=== PATIENT | female | born 1940 | race Two or more races ===

== ENCOUNTER 2023-03-18 07:28 | Day surgery (SDC) | payer OTHER ==
[~2023-03-18] VITALS: Ht 157.5 cm; Wt 62.6 kg
[2023-03-18] VITALS (14 sets, daily range): BP systolic 124–159; BP diastolic 56–86; PULSE 47–91; RESP 11–24; TEMP 97.4; O2SAT 92–100
[~2023-03-18 07:28] MED LIST: ALBU108A5 IN; ALPR0.5T7 PO; FLUT1AER17 IN; FURO1TAB31 PO; LEVO88TA4 PO; METO25TA5 PO; POTA-228 PO; SIMV10TA20 PO; WARF-112 PO; WARF4TAB69 PO
[2023-03-18] MEDS ORDERED: ONDANSETRON HCL 4 MG/2 ML VIAL IV ONE (08:15)
[2023-03-18] MEDS ORDERED: LIDOCAINE VISCOUS 2% 15ML UD MT ONE (08:15)
[2023-03-18] MEDS ORDERED: fentaNYL CITRATE 100 MCG/2 ML VL IV ONE (08:15)
[2023-03-18] MEDS ORDERED: MIDAZOLAM HCL 2MG/2ML 2ml VIAL (1mg/ml) IV ONE (08:15)
[2023-03-18] MEDS ORDERED: MIDAZOLAM HCL 2MG/2ML 2ml VIAL (1mg/ml) ONE ×2 (08:50→09:30)
[2023-03-18] MEDS ORDERED: ANGIOMAX 250 MG VIAL IV ONE (09:29)
[2023-03-18] MEDS ORDERED: fentaNYL CITRATE 100 MCG/2 ML VL ONE (09:29)
[2023-03-18] MEDS ORDERED: SODIUM CHL 0.9% 0 ML ONE (09:30)
[2023-03-18] MEDS ORDERED: IODIXANOL 320MG/ML 100ML BTL IV ONE (09:30)
[2023-03-18] MEDS ORDERED: LIDOCAINE 2%HCL (LOCAL ANESTH.) INJ 20ML MDV ONE (09:30)
[2023-03-18] MEDS ORDERED: HEPARIN SODIUM (PORCINE) 5000 UNITS/ML 1ML VIAL ONE (10:08)
[2023-03-18] MEDS ORDERED: VERAPAMIL 2.5MG/ML INJ 2ML VIAL IV ONE (10:08)
[2023-03-18] MEDS ORDERED: ATROPINE SULF 1 MG/10ml SYR ONE (10:34)
[2023-03-18] MEDS ORDERED: EPINEPHrine HCL 1 MG/10 ML SYRG ONE (10:34)
== END 2023-03-18 14:05 | disposition home or self-care (01) ==
LOC: CATH 07:28
PROVIDERS: ATTEND Internal Medicine
DX: R07.89 Other chest pain (principal); I27.20 Pulmonary hypertension, unspecified; I48.91 Unspecified atrial fibrillation; I08.3 Combined rheumatic disorders of mitral, aortic and tricuspid valves
CPT/HCPCS: 93312; 93460; C1757; C1769; C1887; C1894; J1644; J2250; J3010; Q9967; 99152; 99153; J2405

== ENCOUNTER 2023-08-20 16:27 | Inpatient (IN) | payer OTHER ==
[~2023-08-20] VITALS: Ht 157.5 cm; Wt 62.8 kg
[2023-08-20 17:05] LABS: Basophils # (auto) 0 10 ^3/uL (0-0.2); Eosinophils # (auto) 0.3 10 ^3/uL (0-0.8); Eosinophils % (auto) 5.7 % (0.0-7.0); Hemoglobin 12.3 g/dL (12.2-16.2); Lymphocytes # (auto) 0.8 10 ^3/uL (0.4-5.4); Lymphocytes % (auto) 17.4 % (10.0-50.0); Mean Corpuscular Hemoglobin 31.2 pg (28.0-32.0); Mean Corpuscular Hgb Conc. 33.2 g/dL (32.0-36.0); Mean Corpuscular Volume 94.1 fL (80.0-100.0); Monocytes # (auto) 0.6 10 ^3/uL (0-1.3); Monocytes % (auto) 12.9 % (0.0-12.0); Nucleated Red Blood Cells % 0.2 %; Red Blood Cells 3.93 10^6/uL (4.0-5.20); Red Cell Distribution Width 15.6 % (11.8-14.3); White Blood Cell 4.8 10^3/uL (4.4-10.8)
[2023-08-20 17:18] LABS: Large Platelets FEW; Platelet Estimate Decreased
[2023-08-20 17:19] LABS: Anisocytosis Slight
[2023-08-20 17:20] LABS: INR 2.02 (0.9-1.15); Partial Thromboplastin Time 39.7 SEC (24.5-34.5); Prothrombin Time 20.3 sec (9.3-11.8)
[2023-08-20 17:21] LABS: Alanine Aminotransferase 21 U/L (7-40); Albumin 3.6 g/dL (3.2-4.8); Alkaline Phosphatase 88 U/L (46-116); Anion Gap 2 (5-15); Aspartate Aminotransferase 60 U/L (13-40); BUN/Creatinine Ratio 15.6 (10.0-20.0); Bilirubin, Total 1.5 mg/dL (0.2-1.0); Blood Urea Nitrogen 14 mg/dL (9-23); Calcium 9.1 mg/dL (8.7-10.4); Carbon Dioxide 33 mmol/L (20-30); Chloride 97 mmol/L (98-107); Glucose 105 mg/dL (74-106); Magnesium 1.8 mg/dL (1.6-2.6); Potassium 3.4 mmol/L (3.5-5.1); Sodium 132 mmol/L (136-145); Total Protein 7.4 g/dL (5.7-8.2)
[2023-08-20 17:28] LABS: Urine Bacteria FEW /hpf (None Seen); Urine Blood TRACE /uL (Negative); Urine Clarity HAZY (Clear); Urine Color Colorless (Yellow); Urine Hyaline Cast FEW /lpf (0 - 2); Urine Protein, UAD Negative (Negative); Urine Specific Gravity 1.006 (1.001-1.035); Urine WBC 3 /hpf (0 - 5); Urine pH 7.5 (5.0-8.0)
[2023-08-20] MEDS: ALPRAZolam 0.5 MG TAB PO ONE (19:25)
[2023-08-20] MEDS ORDERED: FUROSEMIDE 40 MG/4 ML VIAL IV ONE (22:15)
[2023-08-20] MEDS: POTASSIUM CHL 20MEQ/100ML 100 ML IV SCH (22:30)
[2023-08-20] MEDS ORDERED: ONDANSETRON HCL 4 MG/2 ML VIAL IV PRN (23:00)
[2023-08-20] MEDS ORDERED: HYDROcodone-ACET 5/325MG TAB PO PRN (23:00)
[2023-08-20] MEDS ORDERED: ACETAMINOPHEN 325 MG TAB PO PRN (23:00)
[2023-08-21] VITALS (22 sets, daily range): BP systolic 116–162; BP diastolic 55–84; PULSE 68–100; RESP 14–20; TEMP 97.6–98.6; O2SAT 95–100
[2023-08-21] MEDS: LEVALBUTEROL HCL 1.25 MG/3 ML NEB NEB SCH (00:15)
[2023-08-21] MEDS: methylPREDNISolone SOD SUCC 40 MG/ML VL IV ONE (00:29)
[2023-08-21] MEDS: AZITHROMYCIN 500MG/ 250ML 250 ML IV ONE (00:30)
[2023-08-21] MEDS ORDERED: METOPROLOL TARTRATE 25 MG TAB PO SCH ×2 (03:00→10:00)
[2023-08-21] MEDS: METOPROLOL TARTRATE 25 MG TAB PO ONE (03:27)
[2023-08-21 06:48] LABS: Basophils # (auto) 0 10 ^3/uL (0-0.2); Basophils % (auto) 0.6 % (0.0-2.0); Eosinophils # (auto) 0 10 ^3/uL (0-0.8); Eosinophils % (auto) 0.9 % (0.0-7.0); Hematocrit 32.6 % (36.0-46.0); Hemoglobin 10.9 g/dL (12.2-16.2); Lymphocytes # (auto) 0.5 10 ^3/uL (0.4-5.4); Lymphocytes % (auto) 16.5 % (10.0-50.0); Mean Corpuscular Hemoglobin 31.5 pg (28.0-32.0); Mean Corpuscular Hgb Conc. 33.5 g/dL (32.0-36.0); Mean Corpuscular Volume 94.1 fL (80.0-100.0); Monocytes # (auto) 0.1 10 ^3/uL (0-1.3); Monocytes % (auto) 3.3 % (0.0-12.0); Neutrophils # (auto) 2.2 10 ^3/uL (1.6-8.6); Neutrophils % (auto) 78.7 % (37.0-80.0); Nucleated Red Blood Cells % 0.1 %; Red Blood Cells 3.47 10^6/uL (4.0-5.20); Red Cell Distribution Width 15.3 % (11.8-14.3); White Blood Cell 2.7 10^3/uL (4.4-10.8)
[2023-08-21 06:53] LABS: Chloride 99 mmol/L (98-107); Potassium 3.7 mmol/L (3.5-5.1); Sodium 132 mmol/L (136-145)
[2023-08-21 06:54] LABS: Anion Gap 3 (5-15); Calcium 8.5 mg/dL (8.5-10.1); Carbon Dioxide 30 mmol/L (20-30)
[2023-08-21] MEDS: LEVOTHYROXINE SODIUM 88 MCG TAB PO SCH (06:56)
[2023-08-21 06:59] LABS: BUN/Creatinine Ratio 13.8 (10.0-20.0); Blood Urea Nitrogen 13 mg/dL (9-23); Glucose 253 mg/dL (74-106)
[2023-08-21] MEDS: PANTOPRAZOLE 40 MG/10 ML VIAL INJ IV SCH (09:07)
[2023-08-21] MEDS: ENOXAPARIN SOD 40 MG/0.4 ML SYRINGE SC SCH (09:07)
[2023-08-21] MEDS: levoFLOXacin 500MG 100 ML IV SCH (09:10)
[2023-08-21] MEDS ORDERED: FUROSEMIDE 40 MG TAB PO SCH (10:00)
[2023-08-21] MEDS ORDERED: ENOXAPARIN SOD 40 MG/0.4 ML SYRINGE SC SCH (10:00)
[2023-08-21] MEDS ORDERED: NIFE1TAB36 PO (13:04)
[2023-08-21] MEDS ORDERED: BENZ100C97 PO (13:04)
[2023-08-21] MEDS ORDERED: MAGN400T40 PO (13:06)
[2023-08-21] MEDS ORDERED: METO5TAB2 PO (13:06)
[2023-08-21] MEDS ORDERED: THIA100T10 PO (13:06)
[2023-08-21] MEDS ORDERED: CHOL100079 OR (13:06)
[2023-08-21 13:41] LABS: COVID19 ANTIGEN SOFIA FIA NEGATIVE (NEGATIVE)
[2023-08-21] MEDS: FUROSEMIDE 40 MG/4 ML VIAL IV SCH (14:00)
[2023-08-21] MEDS: POTASSIUM CHL 20 Meq TABLET PO ONE (18:39)
[2023-08-21] MEDS: METOPROLOL TARTRATE 25 MG TAB PO SCH (21:38)
[2023-08-22] VITALS (10 sets, daily range): BP systolic 103–127; BP diastolic 61–72; PULSE 61–90; RESP 16–20; TEMP 36.6–36.8; O2SAT 98–100
[2023-08-22] MEDS: LORazepam 0.5 MG TAB PO PRN (00:12)
[2023-08-22 06:48] LABS: Basophils # (auto) 0 10 ^3/uL (0-0.2); Basophils % (auto) 0.3 % (0.0-2.0); Eosinophils # (auto) 0.1 10 ^3/uL (0-0.8); Eosinophils % (auto) 2.2 % (0.0-7.0); Hematocrit 30.8 % (36.0-46.0); Hemoglobin 10.4 g/dL (12.2-16.2); Lymphocytes # (auto) 0.9 10 ^3/uL (0.4-5.4); Lymphocytes % (auto) 20.9 % (10.0-50.0); Mean Corpuscular Hemoglobin 31.4 pg (28.0-32.0); Mean Corpuscular Hgb Conc. 33.8 g/dL (32.0-36.0); Monocytes # (auto) 0.5 10 ^3/uL (0-1.3); Monocytes % (auto) 10.3 % (0.0-12.0); Neutrophils # (auto) 2.9 10 ^3/uL (1.6-8.6); Neutrophils % (auto) 66.3 % (37.0-80.0); Nucleated Red Blood Cells % 0.1 %; Red Blood Cells 3.31 10^6/uL (4.0-5.20); Red Cell Distribution Width 15.3 % (11.8-14.3); White Blood Cell 4.4 10^3/uL (4.4-10.8)
[2023-08-22 07:16] LABS: Chloride 99 mmol/L (98-107); Potassium 3.2 mmol/L (3.5-5.1); Sodium 134 mmol/L (136-145)
[2023-08-22 07:17] LABS: Anion Gap 5 (5-15); Calcium 8.5 mg/dL (8.7-10.4); Carbon Dioxide 30 mmol/L (20-30)
[2023-08-22 07:22] LABS: BUN/Creatinine Ratio 15.1 (10.0-20.0); Blood Urea Nitrogen 14 mg/dL (9-23); Glucose 117 mg/dL (74-106)
[2023-08-22] MEDS: POTASSIUM CHL 20 Meq TABLET PO SCH (09:25)
[2023-08-22] MEDS: POTASSIUM CHL 20 Meq TABLET PO ONE (13:46)
[2023-08-22] MEDS ORDERED: FURO1TAB31 PO (14:25)
[2023-08-22] MEDS ORDERED: AMOX500T86 PO (14:25)
[2023-08-22] MEDS ORDERED: BENZ100C97 PO (14:25)
[2023-08-22] MEDS ORDERED: POTA-228 PO (14:25)
[2023-08-22] MEDS ORDERED: [UNRECOGNIZED DRUG - CODE] PO (14:25)
[2023-08-24 08:36] LABS: Hepatitis B Surface Antigen Negative (Negative)
[2023-08-24 08:58] LABS: Hepatitis C Antibody Negative (Negative)
== END 2023-08-22 17:07 | disposition home or self-care (01) | DRG 640 ==
LOC: EDUNIT# 16:27 → ER 16:27 → EDBD 16:27 → TELE 23:03 → TELE-CENTR 23:03
PROVIDERS: ADMIT Nurse Practitioner Family; ATTEND Internal Medicine
DX: E87.1 Hypo-osmolality and hyponatremia (principal); I50.33 Acute on chronic diastolic (congestive) heart failure; I11.0 Hypertensive heart disease with heart failure; J40 Bronchitis, not specified as acute or chronic; E87.6 Hypokalemia; I48.91 Unspecified atrial fibrillation; F41.9 Anxiety disorder, unspecified; I27.20 Pulmonary hypertension, unspecified; Z20.822 Contact with and (suspected) exposure to COVID-19; Z88.5 Allergy status to narcotic agent; Z88.2 Allergy status to sulfonamides; Z99.81 Dependence on supplemental oxygen; Z79.01 Long term (current) use of anticoagulants; Z79.899 Other long term (current) drug therapy
CPT/HCPCS: 36415; 71045; 80048; 80053; 81001; 83735; 83880; 84484; 85025; 85610; 85730; 86803; 87081; 87340; 87426; 93005; 94640; 97110; 97116; 97163; 97530; C9113; G0378; J1956; J3480

== ENCOUNTER 2023-10-27 04:06 | Emergency (ER) | payer OTHER, MEDICAID ==
[~2023-10-27] VITALS: Ht 157.5 cm; Wt 55.5 kg
[~2023-10-27 04:06] MED LIST changes: +AUG875T PO; +CHOL100079 PO; +MAGN400T40 PO; +METO5TAB2 PO; +NIFE1TAB36 PO; +THIA100T10 PO
[2023-10-27 05:45] LABS: Basophils # (auto) 0.1 10 ^3/uL (0-0.2); Basophils % (auto) 1.2 % (0.0-2.0); Eosinophils # (auto) 0.3 10 ^3/uL (0-0.8); Eosinophils % (auto) 5.8 % (0.0-7.0); Hematocrit 34.3 % (36.0-46.0); Hemoglobin 11.7 g/dL (12.2-16.2); Lymphocytes # (auto) 1.3 10 ^3/uL (0.4-5.4); Lymphocytes % (auto) 25.2 % (10.0-50.0); Mean Corpuscular Hemoglobin 32.2 pg (28.0-32.0); Mean Corpuscular Hgb Conc. 34.2 g/dL (32.0-36.0); Mean Corpuscular Volume 94.3 fL (80.0-100.0); Monocytes # (auto) 0.5 10 ^3/uL (0-1.3); Monocytes % (auto) 9.8 % (0.0-12.0); Neutrophils # (auto) 2.9 10 ^3/uL (1.6-8.6); Nucleated Red Blood Cells % 0.1 %; Red Blood Cells 3.64 10^6/uL (4.0-5.20); Red Cell Distribution Width 15.5 % (11.8-14.3)
[2023-10-27 06:01] LABS: INR 3.95 (0.9-1.15); Partial Thromboplastin Time 49.4 SEC (24.5-34.5); Prothrombin Time 37.8 sec (9.3-11.8)
[2023-10-27 06:04] LABS: Alanine Aminotransferase 22 U/L (7-40); Albumin 3.7 g/dL (3.2-4.8); Alkaline Phosphatase 136 U/L (46-116); Anion Gap 6 (5-15); Aspartate Aminotransferase 47 U/L (13-40); BUN/Creatinine Ratio 22.8 (10.0-20.0); Bilirubin, Total 1.4 mg/dL (0.2-1.0); Blood Urea Nitrogen 21 mg/dL (9-23); Calcium 9.4 mg/dL (8.7-10.4); Carbon Dioxide 27 mmol/L (20-30); Chloride 101 mmol/L (98-107); Glucose 109 mg/dL (74-106); Sodium 134 mmol/L (136-145); Total Protein 7.4 g/dL (5.7-8.2)
[2023-10-27 07:33] VITALS: BP 129/78; PULSE 76; RESP 14; O2SAT 98
== END 2023-10-27 07:33 | disposition home or self-care (01) ==
LOC: ER 04:06
DX: T85.9XXD Unspecified complication of internal prosthetic device, implant and graft, subsequent encounter (principal); I10 Essential (primary) hypertension; I48.91 Unspecified atrial fibrillation; E78.5 Hyperlipidemia, unspecified; Z90.49 Acquired absence of other specified parts of digestive tract; Z86.73 Personal history of transient ischemic attack (TIA), and cerebral infarction without residual deficits; Z98.890 Other specified postprocedural states; Z88.8 Allergy status to other drugs, medicaments and biological substances; Z79.899 Other long term (current) drug therapy; Y92.89 Other specified places as the place of occurrence of the external cause
CPT/HCPCS: 36415; 74176; 80053; 85025; 85610; 85730

== ENCOUNTER 2024-01-31 05:57 | Inpatient (IN) | payer OTHER, MEDICAID ==
[~2024-01-31] VITALS: Ht 157.5 cm; Wt 71.3 kg
[2024-01-31 07:10] LABS: Basophils # (auto) 0 10 ^3/uL (0-0.2); Eosinophils # (auto) 0.1 10 ^3/uL (0-0.8); Hemoglobin 7.8 g/dL (12.2-16.2); Monocytes # (auto) 0.5 10 ^3/uL (0-1.3); Neutrophils # (auto) 5.3 10 ^3/uL (1.6-8.6); Platelet Count (auto) 126 10^3/uL (140-450); Red Blood Cells 2.66 10^6/uL (4.0-5.20)
[2024-01-31 07:12] LABS: Basophils % (auto) 0.5 % (0.0-2.0); Eosinophils % (auto) 2.2 % (0.0-7.0); Hematocrit 23.6 % (36.0-46.0); Lymphocytes # (auto) 0.7 10 ^3/uL (0.4-5.4); Mean Corpuscular Hemoglobin 29.4 pg (28.0-32.0); Mean Corpuscular Hgb Conc. 33.2 g/dL (32.0-36.0); Mean Corpuscular Volume 88.8 fL (80.0-100.0); Monocytes % (auto) 7.7 % (0.0-12.0); Neutrophils % (auto) 79.6 % (37.0-80.0); Red Cell Distribution Width 16.1 % (11.8-14.3); White Blood Cell 6.6 10^3/uL (4.4-10.8)
[2024-01-31 07:21] LABS: Alanine Aminotransferase 13 U/L (7-40); Albumin 3.3 g/dL (3.2-4.8); Alkaline Phosphatase 120 U/L (46-116); Anion Gap 5 (5-15); Aspartate Aminotransferase 40 U/L (13-40); BUN/Creatinine Ratio 22.6 (10.0-20.0); Bilirubin, Total 1.4 mg/dL (0.2-1.0); Blood Urea Nitrogen 24 mg/dL (9-23); Calcium 8.6 mg/dL (8.7-10.4); Carbon Dioxide 26 mmol/L (20-30); Chloride 99 mmol/L (98-107); Glucose 125 mg/dL (74-106); Lipase 57 U/L (12-53); Potassium 5.2 mmol/L (3.5-5.1); Sodium 130 mmol/L (136-145)
[2024-01-31 07:22] LABS: Total Protein 6.6 g/dL (5.7-8.2)
[2024-01-31 07:25] LABS: INR 2.45 (0.9-1.15); Prothrombin Time 24.3 sec (9.3-11.8)
[2024-01-31] MEDS: SODIUM CHLORIDE 0.9% 500 ML IVB ONE (07:42)
[2024-01-31] MEDS: ONDANSETRON HCL 4 MG/2 ML VIAL IV ONE (07:53)
[2024-01-31] MEDS: PANTOPRAZOLE 40 MG/10 ML VIAL INJ IV ONE (07:53)
[2024-01-31 09:13] LABS: Urine WBC None Seen /hpf (0 - 5)
[2024-01-31 09:24] LABS: Urine Bacteria FEW /hpf (None Seen); Urine Blood Negative /uL (Negative); Urine Clarity Clear (Clear); Urine Color Light-Yellow (Yellow); Urine Protein, UAD Negative (Negative); Urine Specific Gravity 1.012 (1.001-1.035); Urine Urobilinogen Normal (Negative)
[2024-01-31 10:16] VITALS: PULSE 84; RESP 20; O2SAT 100
[2024-01-31] MEDS ORDERED: HYDROcodone-ACET 5/325MG TAB PO PRN (14:15)
[2024-01-31] MEDS ORDERED: NITROGLYCERIN 0.4 MG SL TAB SL PRN (14:15)
[2024-01-31] MEDS ORDERED: ONDANSETRON HCL 4 MG/2 ML VIAL IV PRN (14:15)
[2024-01-31] MEDS ORDERED: MORPHINE SULFATE INJ 2 MG/ml SYRG IV PRN ×2 (14:15)
[2024-01-31] MEDS ORDERED: ACETAMINOPHEN 325 MG TAB PO PRN (14:15)
[2024-01-31] MEDS: SODIUM CHLORIDE 0.9% 1,000 ML IV SCH (15:04)
[2024-01-31] MEDS: PHYTONADIONE (VIT K)10 MG/ML 1ML VIAL SUBCUT ONE (15:18)
[2024-01-31] MEDS ORDERED: PHYTONADIONE (VIT K)10 MG/ML 1ML VIAL SUBCUT ONE (17:00)
[2024-01-31] MEDS: PANTOPRAZOLE 40mg/50ML NS AE 50 ML IV SCH (17:00)
[2024-01-31 19:30] VITALS: PULSE 90; RESP 17; O2SAT 98
[2024-01-31 20:00] VITALS: PULSE 86; RESP 17; O2SAT 100
[2024-01-31] MEDS ORDERED: POTA-180 PO (22:54)
[2024-01-31] MEDS: METOPROLOL TARTRATE 25 MG TAB PO SCH (22:54)
[2024-01-31] MEDS: ALPRAZolam 0.5 MG TAB PO SCH (22:55)
[2024-01-31] MEDS ORDERED: WARF4TAB69 PO (22:58)
[2024-01-31 23:00] VITALS: BP 125/55; PULSE 86; RESP 17; TEMP 98.3; O2SAT 100
[2024-02-01] VITALS (11 sets, daily range): BP systolic 91–130; BP diastolic 39–69; PULSE 63–96; RESP 16–20; TEMP 97.7–98.2; O2SAT 94–100
[2024-02-01] MEDS: LEVOTHYROXINE SODIUM 88 MCG TAB PO SCH (06:37)
[2024-02-01 07:23] LABS: Basophils # (auto) 0 10 ^3/uL (0-0.2); Eosinophils # (auto) 0.2 10 ^3/uL (0-0.8); Eosinophils % (auto) 4.2 % (0.0-7.0); Monocytes # (auto) 0.4 10 ^3/uL (0-1.3); Platelet Count (auto) 93 10^3/uL (140-450); White Blood Cell 4.5 10^3/uL (4.4-10.8)
[2024-02-01 07:25] LABS: Basophils % (auto) 0.7 % (0.0-2.0); Hematocrit 18.8 % (36.0-46.0); Lymphocytes % (auto) 22.3 % (10.0-50.0); Mean Corpuscular Hgb Conc. 32.9 g/dL (32.0-36.0); Mean Corpuscular Volume 88.3 fL (80.0-100.0); Monocytes % (auto) 9.1 % (0.0-12.0); Neutrophils # (auto) 2.9 10 ^3/uL (1.6-8.6); Neutrophils % (auto) 63.7 % (37.0-80.0); Nucleated Red Blood Cells % 0.2 %; Red Blood Cells 2.12 10^6/uL (4.0-5.20); Red Cell Distribution Width 16.4 % (11.8-14.3)
[2024-02-01 07:32] LABS: Alanine Aminotransferase 12 U/L (7-40); Albumin 2.7 g/dL (3.2-4.8); Alkaline Phosphatase 73 U/L (46-116); Anion Gap 0 (5-15); Aspartate Aminotransferase 34 U/L (13-40); BUN/Creatinine Ratio 27.9 (10.0-20.0); Blood Urea Nitrogen 29 mg/dL (9-23); Calcium 8.7 mg/dL (8.7-10.4); Carbon Dioxide 28 mmol/L (20-30); Chloride 105 mmol/L (98-107); Glucose 78 mg/dL (74-106); Hemoglobin 6.2 g/dL (12.2-16.2); Potassium 4.4 mmol/L (3.5-5.1); Sodium 133 mmol/L (136-145)
[2024-02-01 07:34] LABS: Bilirubin, Total 1.4 mg/dL (0.2-1.0); Total Protein 5.4 g/dL (5.7-8.2)
[2024-02-01 08:49] LABS: Platelet Estimate Decreased
[2024-02-01] MEDS ORDERED: PHYTONADIONE (VIT K)10 MG/ML 1ML VIAL SUBCUT SCH (10:00)
[2024-02-01] MEDS: Fluticasone-Umeclidinium-Vilan (Trelegy Ellipta 200-62.5-25 Mcg/I IN SCH (10:00)
[2024-02-01] MEDS: NIFEdipine ER 30 MG TAB PO SCH (10:00)
[2024-02-01] MEDS: CHOLECALCIFEROL (VITD3) 1,000UNIT=25mCg TAB PO SCH (10:00)
[2024-02-01] MEDS: SIMVASTATIN 10 MG PO SCH (10:00)
[2024-02-01 10:13] LABS: INR 2.31 (0.9-1.15)
[2024-02-01 18:58] LABS: Basophils # (auto) 0 10 ^3/uL (0-0.2); Basophils % (auto) 0.5 % (0.0-2.0); Eosinophils # (auto) 0.2 10 ^3/uL (0-0.8); Eosinophils % (auto) 4.5 % (0.0-7.0); Hematocrit 23.9 % (36.0-46.0); Hemoglobin 7.8 g/dL (12.2-16.2); Lymphocytes # (auto) 0.7 10 ^3/uL (0.4-5.4); Lymphocytes % (auto) 14.5 % (10.0-50.0); Mean Corpuscular Hgb Conc. 32.5 g/dL (32.0-36.0); Mean Corpuscular Volume 89.2 fL (80.0-100.0); Monocytes # (auto) 0.4 10 ^3/uL (0-1.3); Monocytes % (auto) 7.7 % (0.0-12.0); Neutrophils # (auto) 3.7 10 ^3/uL (1.6-8.6); Neutrophils % (auto) 72.8 % (37.0-80.0); Platelet Count (auto) 98 10^3/uL (140-450); Red Blood Cells 2.68 10^6/uL (4.0-5.20); Red Cell Distribution Width 16.5 % (11.8-14.3)
[2024-02-02] VITALS (10 sets, daily range): BP systolic 105–132; BP diastolic 42–70; PULSE 67–115; RESP 15–21; TEMP 97.4–98.1; O2SAT 99–100
[2024-02-02 07:06] LABS: INR 1.63 (0.9-1.15); Prothrombin Time 16.7 sec (9.3-11.8)
[2024-02-02] MEDS ORDERED: LIDOCAINE VISCOUS 2% 15ML UD ONE (08:50)
[2024-02-02] MEDS ORDERED: SODIUM CHLORIDE LOCK 10 ML ONE (08:50)
[2024-02-02] MEDS ORDERED: diphenhdrAMINE HCL 50 MG/1 ML VL ONE (08:50)
[2024-02-02] MEDS ORDERED: FLUMAZENIL 0.1 MG/ML INJ 10ML MDV IV ONE (08:51)
[2024-02-02] MEDS ORDERED: NALOXONE HCL 0.4 MG/ML VIAL ONE (08:51)
[2024-02-02] MEDS: MIDAZOLAM HCL 5 MG/ML-1ML VIAL ONE (11:31)
[2024-02-02] MEDS: fentaNYL CITRATE 100 MCG/2 ML VL ONE (11:31)
[2024-02-02 13:38] LABS: Basophils # (auto) 0 10 ^3/uL (0-0.2); Eosinophils # (auto) 0.2 10 ^3/uL (0-0.8); Eosinophils % (auto) 5.5 % (0.0-7.0); Hematocrit 22.9 % (36.0-46.0); Hemoglobin 7.4 g/dL (12.2-16.2); Lymphocytes # (auto) 0.8 10 ^3/uL (0.4-5.4); Lymphocytes % (auto) 20.7 % (10.0-50.0); Mean Corpuscular Hgb Conc. 32.2 g/dL (32.0-36.0); Mean Corpuscular Volume 90.1 fL (80.0-100.0); Monocytes # (auto) 0.4 10 ^3/uL (0-1.3); Monocytes % (auto) 10.7 % (0.0-12.0); Neutrophils # (auto) 2.4 10 ^3/uL (1.6-8.6); Neutrophils % (auto) 62.1 % (37.0-80.0); Nucleated Red Blood Cells % 0.1 %; Red Blood Cells 2.55 10^6/uL (4.0-5.20); Red Cell Distribution Width 16.4 % (11.8-14.3); White Blood Cell 3.9 10^3/uL (4.4-10.8)
[2024-02-02 13:39] LABS: Platelet Count (auto) 90 10^3/uL (140-450)
[2024-02-02] MEDS: PNEUMOCOCCAL VACC POLYS 25 MCG/0.5 ML VIAL IM ONE (18:31)
[2024-02-03 05:00] VITALS: BP 121/43; PULSE 73; RESP 21; TEMP 97.9; O2SAT 100
[2024-02-03 06:08] LABS: Basophils # (auto) 0 10 ^3/uL (0-0.2); Eosinophils # (auto) 0.3 10 ^3/uL (0-0.8); Hematocrit 22.9 % (36.0-46.0); Hemoglobin 7.5 g/dL (12.2-16.2); Monocytes # (auto) 0.4 10 ^3/uL (0-1.3); Neutrophils # (auto) 2.5 10 ^3/uL (1.6-8.6)
[2024-02-03 06:12] LABS: Basophils % (auto) 1.1 % (0.0-2.0); Eosinophils % (auto) 6.9 % (0.0-7.0); Lymphocytes # (auto) 0.8 10 ^3/uL (0.4-5.4); Lymphocytes % (auto) 20.3 % (10.0-50.0); Mean Corpuscular Hemoglobin 29.6 pg (28.0-32.0); Mean Corpuscular Hgb Conc. 32.8 g/dL (32.0-36.0); Monocytes % (auto) 10.7 % (0.0-12.0); Nucleated Red Blood Cells % 0.4 %; Platelet Count (auto) 89 10^3/uL (140-450); Red Blood Cells 2.54 10^6/uL (4.0-5.20); Red Cell Distribution Width 16.5 % (11.8-14.3); White Blood Cell 4.1 10^3/uL (4.4-10.8)
[2024-02-03 06:30] LABS: Anion Gap 7 (5-15); Carbon Dioxide 22 mmol/L (20-30); Chloride 107 mmol/L (98-107); Sodium 136 mmol/L (136-145)
[2024-02-03 06:31] LABS: Calcium 8.7 mg/dL (8.7-10.4)
[2024-02-03 06:36] LABS: Blood Urea Nitrogen 24 mg/dL (9-23); Glucose 109 mg/dL (74-106)
[2024-02-03 06:37] LABS: Magnesium 2.2 mg/dL (1.6-2.6)
[2024-02-03 08:00] VITALS: PULSE 87
[2024-02-03 08:34] VITALS: BP 124/49; PULSE 72; RESP 18; TEMP 98.1; O2SAT 100
[2024-02-03 13:16] VITALS: BP 110/51; PULSE 76; RESP 18; TEMP 98.3; O2SAT 100
[2024-02-03] MEDS ORDERED: PANT40T PO (14:16)
[2024-02-03 17:00] VITALS: BP 118/31; PULSE 95; RESP 18; TEMP 98; O2SAT 98
[2024-02-03 17:07] VITALS: BP 110/51; PULSE 76; RESP 20; TEMP 98.3; O2SAT 100
[2024-02-04] MEDS ORDERED: PANTOPRAZOLE 40 MG TAB PO SCH (06:00)
== END 2024-02-03 17:55 | disposition home or self-care (01) | DRG 432 ==
LOC: ER 05:57 → TELE 14:19 → TELE-WESTW 22:10
PROVIDERS: ADMIT Internal Medicine; ATTEND Internal Medicine
PROC: 30233N1 Transfusion of Nonautologous Red Blood Cells into Peripheral Vein, Percutaneous Approach (ICD-10-PCS; 2024-02-01)
PROC: 0DJ08ZZ Inspection of Upper Intestinal Tract, Via Natural or Artificial Opening Endoscopic (ICD-10-PCS; principal; 2024-02-02 11:28)
DX: K74.60 Unspecified cirrhosis of liver (principal); I85.11 Secondary esophageal varices with bleeding; K20.91 Esophagitis, unspecified with bleeding; D61.818 Other pancytopenia; D68.9 Coagulation defect, unspecified; I48.20 Chronic atrial fibrillation, unspecified; K76.6 Portal hypertension; F41.9 Anxiety disorder, unspecified; E03.9 Hypothyroidism, unspecified; E78.5 Hyperlipidemia, unspecified; K31.89 Other diseases of stomach and duodenum; K44.9 Diaphragmatic hernia without obstruction or gangrene; I50.9 Heart failure, unspecified; I11.0 Hypertensive heart disease with heart failure; I08.1 Rheumatic disorders of both mitral and tricuspid valves; T45.515A Adverse effect of anticoagulants, initial encounter; Z79.01 Long term (current) use of anticoagulants; Z88.5 Allergy status to narcotic agent; Z88.2 Allergy status to sulfonamides; Z79.899 Other long term (current) drug therapy; Z83.3 Family history of diabetes mellitus; Z82.49 Family history of ischemic heart disease and other diseases of the circulatory system; Z90.710 Acquired absence of both cervix and uterus; Y92.89 Other specified places as the place of occurrence of the external cause; Z86.73 Personal history of transient ischemic attack (TIA), and cerebral infarction without residual deficits; Z95.2 Presence of prosthetic heart valve
CPT/HCPCS: 36415; 43235; 71045; 74176; 80048; 80053; 81001; 83690; 83735; 85025; 85610; 85730; 86850; 86900; 86901; 86920; 93005; 96361; 96374; 96375; G0378; J2250; J2405; J2470; J3430

== ENCOUNTER 2024-07-13 19:20 | Inpatient (IN) | payer OTHER, MEDICAID ==
[~2024-07-13] VITALS: Ht 157.5 cm; Wt 69.2 kg
[~2024-07-13 19:20] MED LIST changes: -ALBU108A5 IN; +ALBU108A5 INH; +ALPR0.254 PO; -AUG875T PO; +CIPR-173 PO; +FERR1TAB8 PO; -FLUT1AER17 IN; +FURO80TA3 PO; +METR-344 PO; -NIFE1TAB36 PO; +PANT40T PO; +POTA-180 PO; -WARF-112 PO; -WARF4TAB69 PO
--- NOTE | 2024-07-13 19:43 | ED.PDOC ---
GI ASSESSMENT HPI Comments 84 year old female brought in by EMS presents to the ED with a chief complaint of rectal bleeding onset today. Per EMS, patient states she woke up from a nap a few hours ago, went to the restroom when she noticed she was experiencing diarrhea and noticed blood in stool. Patient states blood was bright red and bowel movement was water-like. She is currently experiencing dizziness, generalized weakness. PMHx of HTN, HLD, CVA, Afib, CHF, hypothyroid, liver cirrhosis, gallstones, unspecified kidney disease. Denies fall, abdominal pain, nausea, vomiting, constipation, headache, chest pain, shortness of breath, dysuria, hematuria. No other symptoms or modifying factors present at this time. Chief Complaint: GI Bleed Time Seen by MD: 19:22 Primary Care Provider: ABRAHAN Reviewed Notes: Medications, Allergies Allergies: Coded Allergies: Codeine (Verified Allergy, Severe, HALLUCINATION, 03/17/23) Oxycodone (Verified Allergy, Severe, NAUSEA, LIGHT HEADEDNESS, 03/17/23) Sulfamethoxazole (Verified Allergy, Severe, ILLUSION, 03/17/23) Home Meds Active Scripts Metronidazole (Flagyl) 500 Mg Tab, 1 TAB PO TID for 10 Days, #30 TAB Prov:DANA RIOS MD 03/04/24 Ciprofloxacin Hcl (Cipro) 500 Mg Tab, 1 TAB PO BID for 10 Days, #20 TAB Prov:DANA RIOS MD 03/04/24 Pantoprazole Sodium Sesquihydr (Pantoprazole Sodium) 40 Mg Tab, 40 MG PO DAILY@0600, #60 TAB Prov:ANTONY RUSSELL MD 02/03/24 Furosemide (Lasix) 40 Mg Tab, 40 MG PO BID, #60 TAB Prov:DAWSON GUARDADO MD 08/22/23 Potassium Chloride (Potassium Chloride ER) 10 Meq Tab, 10 MEQ PO DAILY, #30 TAB Prov:DAWSON GUARDADO MD 08/22/23 Reported Medications Cholecalciferol (VITAMIN D3) 1,000 Unit Chw, 1000 UNIT PO DAILY, TAB.CHEW 08/21/23 Thiamine Hcl (VITAMIN B-1) 100 Mg Tb, 100 MG PO DAILY, TAB 08/21/23 Magnesium Oxide (MAGNESIUM OXIDE) 400 Mg Tab, 1 TAB PO DAILY, #30 TAB 5 Refills 08/21/23 Metoclopramide Hcl (Metoclopramide Hcl) 5 Mg Tab, 10 MG PO Q8HPRN PRN for FOR STOMACH DISTRESS, TAB 08/21/23 Albuterol Sulfate (Albuterol Sulfate Hfa) 108 Mcg/Act Aer, 2 PUFF IN TID PRN for SHORTNESS OF BREATH 03/17/23 Alprazolam (Alprazolam) 0.5 Mg Tab, 1 TAB PO HS 03/17/23 Levothyroxine Sodium (Levothyroxine Sodium) 88 Mcg Tab, 88 MCG PO QAM 03/17/23 Simvastatin (Simvastatin) 10 Mg Tab, 10 MG PO DAILY 03/17/23 Metoprolol Tartrate (Metoprolol Tartrate) 25 Mg Tab, 25 MG PO DAILY 03/17/23 Information Source: Patient, Emergency Med Personnel Mode of Arrival: EMS Timing: Hours Duration: Since onset Prehospital treatment: None Quality: None Stool: Blood Streaked, Watery Severity: Moderate Recent: None Recent Hx of: None Pain Location: None Associated sign and symptoms: Diarrhea, Blood in Stool Past Medical History PAST MEDICAL HISTORY: AFIB, CHF, CVA, Gallstones, High Lipids, HTN, Liver, Thyroid Surgical History: Appendectomy, Hysterectomy WAIST PRESSER History: No Pertinent WAIST PRESSER History Family History Family History: Family hx of DM, Family hx of heart cindy, Family hx of HTN Social History Smoker: Non-Smoker Alcohol: Denies ETOH Use Drugs: Denies Drug Use Lives In: Home Gastrointestinal: reports: diarrhea, rectal bleeding Physical Exam General Appearance: No Apparent Distress, Normal HEENT: Normal ENT Inspection, Pharynx Normal, TMs Normal Neck: Full Range of Motion, Non-Tender, Normal, Normal Inspection Respiratory: Chest Non-Tender, Lungs Clear, No Accessory Muscle Use, No Respiratory Distress, Normal Breath Sounds Cardiovascular: No Edema, No JVD, No Murmur, No Gallop, Normal Peripheral Pulses, Regular Rate/Rhythm Breast Exam: Deferred Gastrointestinal: No Organomegaly, Non Tender, No Pulsatile Mass, Normal Bowel Sounds, Soft Genitalia: Deferred Pelvic: Deferred Rectal: Deferred Extremities: No calf tenderness, Normal capillary refill, Normal inspection, Normal range of motion, Non-tender, No pedal edema Musculoskeletal : Apperance: Normal Neurologic: Alert, chinese herbalist II-XII nml as Tested, No Motor Deficits, Normal Affect, Normal Mood, No Sensory Deficits Cerebellar Function: Normal Reflexes: Normal Skin: Dry, Normal Color, Warm Lymphatic: No Adenopathy Was a procedure done? Was a procedure done?: No GI differential Dx Differential Diagnosis: Dysmenorrhea, Gastroenteritis, Viral, Other (Pneumonia, GI bleed) X-Ray, Labs, Meds, VS Vital Signs Date Time Temp Pulse Resp B/P (MAP) Pulse Ox O2 Delivery O2 Flow Rate FiO2 07/13/24 19:23 86 07/13/24 19:20 98.2 84 16 144/80 (101) 97 Lab Test 07/13/24 19:49 Range/Units White Blood Count 4.6 4.4-10.8 10^3/uL Red Blood Count 3.04 L 4.0-5.20 10^6/uL Hemoglobin 10.1 L 12.2-16.2 g/dL Hematocrit 30.7 L 36.0-46.0 % Mean Corpuscular Volume 101.0 H 80.0-100.0 fL Mean Corpuscular Hemoglobin 33.2 H 28.0-32.0 pg Mean Corpuscular Hemoglobin Concent 32.9 32.0-36.0 g/dL Red Cell Distribution Width 17.7 H 11.8-14.3 % Platelet Count 119 L 140-450 10^3/uL Mean Platelet Volume 7.1 6.9-10.8 fL Neutrophils (%) (Auto) 59.4 37.0-80.0 % Lymphocytes (%) (Auto) 20.4 10.0-50.0 % Monocytes (%) (Auto) 12.5 H 0.0-12.0 % Eosinophils (%) (Auto) 6.4 0.0-7.0 % Basophils (%) (Auto) 1.3 0.0-2.0 % Neutrophils # (Auto) 2.8 1.6-8.6 10 ^3/uL Lymphocytes # (Auto) 0.9 0.4-5.4 10 ^3/uL Monocytes # (Auto) 0.6 0-1.3 10 ^3/uL Eosinophils # (Auto) 0.3 0-0.8 10 ^3/uL Basophils # (Auto) 0.1 0-0.2 10 ^3/uL Nucleated Red Blood Cells 0.1 % Prothrombin Time 16.3 H 9.3-11.8 sec Prothrombin Time INR 1.61 H 0.9-1.15 Sodium Level 137 136-145 mmol/L Potassium Level 4.5 3.5-5.1 mmol/L Chloride Level 102 98-107 mmol/L Carbon Dioxide Level 30 20-31 mmol/L Anion Gap 5 5-15 Blood Urea Nitrogen 12 9-23 mg/dL Creatinine 1.24 H 0.550-1.02 mg/dL Glomerular Filtration Rate Calc 42 >90 mL/min BUN/Creatinine Ratio 9.7 L 10.0-20.0 Serum Glucose 112 H 74-106 mg/dL Calcium Level 8.3 L 8.7-10.4 mg/dL [place] [id number] Ph: [phone] DIAGNOSTIC IMAGING Diagnostic Imaging Report : [id number] Signed PATIENT: BETY HARTCCT: [id number] UNIT: [id number] : 1940 LOC: ER ROOM / BED: / AGE / SEX: 84 / F ADM STATUS: REG ER SERVICE 25 ORDERING PHYSICIAN: MARY KAPOOR MD PROCEDURE(s): ABPLIV - CT AB PEL WITH IV CON ONLY REASON: abdominal pain, gi bleed ORDER NUMBER(s): [id number], ACCESSION NUMBER(s): [id number] Exam: CT CT AB PEL WITH IV CON ONLY History: abdominal pain, gi bleed COMPARISON: None Technique: Multidetector spiral CT of the abdomen and pelvis was performed from lung bases to pubic symphysis. Intravenous contrast was administered during this examination. Portal venous imaging was obtained. Axial, coronal and s agittal multiplanar reformats were performed by the technologist on a separate workstation. Radiation Dose : 1. Abdomen/Pelvis: CTDIvol 12 mGy, DLP 717 mGy*cm. CONTRAST: Type of contrast: Omni 300 Contrast injected: 100 ml Findings: Lung Bases: Multifocal pneumonia throughout both lung bases. Moderate pericardial effusion. Liver: Cirrhotic liver. Gallbladder and Biliary Tree: Unremarkable Spleen: Unremarkable Pancreas: The pancreas is normal in appearance without focal lesions or abnormal enhancement. Adrenal Glands: Unremarkable Kidneys: No hydronephrosis. Bladder: Unremarkable Bowel: The stomach is grossly normal in appearance. Small bowel and colon are normal in caliber and distribution. The appendix is not visualized; however, no secondary findings of acute appendicitis identified. Ascites: Moderate to large volume abdominopelvic ascites. Lymphadenopathy: No mesenteric, retroperitoneal or periportal lymphadenopathy. Abdominal Wall and Mesentery: Diffuse anasarca. Vasculature: The visualized abdominal aorta is normal in size and caliber. Abdominal and pelvic vessels demonstrate normal enhancement. Pelvic Organs: Unremarkable Musculoskeletal: No aggressive focal bony lesions, acute fractures or dislocation. Right-sided hip arthroplasty in place. IMPRESSION: 1. Cirrhotic liver. 2. Moderate to large volume abdominopelvic ascites. 3. Multifocal pneumonia. 4. Moderate pericardial effusion 5. Unable to evaluate for acute GI bleed in this limited portal venous phase CT. If there is ongoing concern for acute GI bleed, recommend CTA triple phase of the abdomen and pelvis Radiation optimization: All CT scans at this facility use at least one of these dose optimization techniques: automated exposure control mA and/or kV adjustment per patient size (includes targeted exams where dose is matched to clinical indication) or iterative reconstruction. ATED BY: ROBBY SIMPSON MD DICTATED DATE/TIME: 07/13/242133 SIGNED BY: ROBBY SIMPSON MD SIGNED DATE/TIME: 07/13/242133 CC: [place] [id number] Ph: [phone] DIAGNOSTIC IMAGING Diagnostic Imaging Report : [id number] Signed PATIENT: BETY HART ACCT: [id number] UNIT: [id number] : 1940 LOC: ER ROOM / BED: / AGE / SEX: 84 / F ADM STATUS: REG ER SERVICE 25 ORDERING PHYSICIAN: MARY KAPOOR MD PROCEDURE(s): CXRP - CHEST PORTABLE REASON: gi bleed ORDER NUMBER(s): [id number], ACCESSION NUMBER(s): [id number] EXAM: XY CHEST PORTABLE TECHNIQUE: Single frontal chest radiograph CLINICAL HISTORY: gi bleed COMPARISON: XY CHEST PORTABLE on DOS: 03/01/24, XY CHEST PORTABLE on DOS: , XY CHEST PORTABLE on DOS: 09/11/23 Findings/Impression: Frontal chest radiograph demonstrates no acute osseous or superficial soft tissue abnormalities. The trachea is midline. The cardiac silhouette and mediastinum are within normal limits. Low lung volumes with bronchovascular crowding. No pneumothorax, pleural effusions, or consolidations. ATED BY: KIM ABRAHAM DO DICTATED DATE/TIME: 07/13/242125 SIGNED BY: KIM ABRAHAM DO SIGNED DATE/TIME: 07/13/242125 CC: Time of 1ST Reevaluation: 19:52 Reevaluation 1ST: Improved Patient Education/Counseling: Diagnosis, Treatment Family Education/Counseling: No Family Present Additional Information The following tests were ordered, and results were reviewed by me: PRTHROMBIN TIME W/ INR, BMP, CBC, XY CHEST, CT ABD PEL WITH IV CON, EKG Additional Information was gathered from interviewing the following independent historians: EMS I reviewed and agreed with the following test results read by other providers: XY CHEST, CT ABD PEL WITH IV CON I discussed treatment and results with medical personnel, patient Departure 1 Departure Time of Disposition: 22:03 (Patient presents with multifocal pneumonia and lower GI bleed. We will empirically cover patient with antibiotics fluids and admit patient for further workup. We will not give the full fluid bolus because patient has a component of heart failure.) Impression: Primary Impression: Multifocal pneumonia Additional Impression: Lower GI bleed Disposition: ADMITTED INPATIENT Admit to: Med Surg Condition: Guarded Critical Care Note Critical Care Time?: Yes Critical care comment: Multifocal pneumonia Authorized and Performed by: Mary Kapoor MD Total critical care time: Approximately 38 minutes Due to a high probability of clinically significant, life threatening deterioration, the patient required my highest level of preparedness to intervene emergently and I personally spent this critical care time directly and personally managing the patient. This critical care time included obtaining a history; examining the patient; pulse oximetry; ordering and review of studies; arranging urgent treatment with development of a management plan; evaluation of patient's response to treatment; frequent reassessment; and, discussions with other providers. This critical care time was performed to assess and manage the high probability of imminent, life-threatening deterioration that could result in multi-organ failure. It was exclusive of separately billable procedures and treating other patients and teaching time. Please see my other sections and the rest of the note for further information on patient assessment and treatment. Stability Stability form required: No I personally scribed for MARY KAPOOR MD ([email or web address]) on 07/13/24 at 19:43. Electronically submitted by Lilia Herron ([email or web address]). I personally scribed for MARY KAPOOR MD ([email or web address]) on 07/13/24 at 19:50. Electronically submitted by Lilia Herron ([email or web address]). I personally scribed for MARY KAPOOR MD ([email or web address]) on 07/13/24 at 19:51. Electronically submitted by Lilia Herron ([email or web address]). I personally scribed for MARY KAPOOR MD ([email or web address]) on 07/13/24 at 19:59. Electronically submitted by Lilia Herron ([email or web address]). I personally scribed for MARY KAPOOR MD ([email or web address]) on 07/13/24 at 22:01. Electronically submitted by Lilia Herron ([email or web address]). MARY KAPOOR MD Jul 13, 2024 19:43
[2024-07-13 20:09] LABS: Basophils # (auto) 0.1 10 ^3/uL (0-0.2); Eosinophils # (auto) 0.3 10 ^3/uL (0-0.8); Hemoglobin 10.1 g/dL (12.2-16.2); Monocytes # (auto) 0.6 10 ^3/uL (0-1.3); Neutrophils # (auto) 2.8 10 ^3/uL (1.6-8.6)
[2024-07-13 20:10] LABS: Basophils % (auto) 1.3 % (0.0-2.0); Eosinophils % (auto) 6.4 % (0.0-7.0); Hematocrit 30.7 % (36.0-46.0); Lymphocytes # (auto) 0.9 10 ^3/uL (0.4-5.4); Lymphocytes % (auto) 20.4 % (10.0-50.0); Mean Corpuscular Hemoglobin 33.2 pg (28.0-32.0); Mean Corpuscular Hgb Conc. 32.9 g/dL (32.0-36.0); Monocytes % (auto) 12.5 % (0.0-12.0); Neutrophils % (auto) 59.4 % (37.0-80.0); Nucleated Red Blood Cells % 0.1 %; Platelet Count (auto) 119 10^3/uL (140-450); Red Blood Cells 3.04 10^6/uL (4.0-5.20); Red Cell Distribution Width 17.7 % (11.8-14.3); White Blood Cell 4.6 10^3/uL (4.4-10.8)
[2024-07-13 20:11] LABS: Chloride 102 mmol/L (98-107); Potassium 4.5 mmol/L (3.5-5.1); Sodium 137 mmol/L (136-145)
[2024-07-13 20:12] LABS: Anion Gap 5 (5-15); Carbon Dioxide 30 mmol/L (20-31)
[2024-07-13 20:17] LABS: BUN/Creatinine Ratio 9.7 (10.0-20.0); Blood Urea Nitrogen 12 mg/dL (9-23)
[2024-07-13 20:28] LABS: INR 1.61 (0.9-1.15); Prothrombin Time 16.3 sec (9.3-11.8)
[2024-07-13 20:51] LABS: Calcium 8.3 mg/dL (8.7-10.4); Glucose 112 mg/dL (74-106)
[2024-07-13] MEDS: IOHEXOL 300 MG/ML 100ML BOTTLE IJ ONE (21:20)
--- NOTE | 2024-07-13 21:30 | DVH ---
EXAM: XY CHEST PORTABLE TECHNIQUE: Single frontal chest radiograph CLINICAL HISTORY: gi bleed COMPARISON: XY CHEST PORTABLE on DOS: 03/01/24, XY CHEST PORTABLE on DOS: 02/02/24, XY CHEST PORTABLE o n DOS: 09/11/23 Findings/Impression: Frontal chest radiograph demonstrates no acute osseous or superficial soft tissue abnormalities. The trachea is midline. The cardiac silhouette and mediastinum are within normal limits. Low lung volumes with bronchovascular crowding. No pneumothorax, pleural effusions, or consolidations.
--- NOTE | 2024-07-13 21:37 | DVH ---
Exam: CT CT AB PEL WITH IV CON ONLY History: abdominal pain, gi bleed COMPARISON: None Technique: Multidetector spiral CT of the abdomen and pelvis was performed from lung bases to pubic s ymphysis. Intravenous contrast was administered during this examination. Portal venous imaging was obtained. Axial, coronal and sagittal multiplanar reformats were performed by the technologist on a separate workstation. Radiation Dose : 1. Abdomen/Pelvis: CTDIvol 12 mGy, DLP 717 mGy*cm. CONTRAST: Type of contrast: Omni 300 Contrast injected: 100 ml Findings: Lung Bases: Multifocal pneumonia throughout both lung bases. Moderate pericardial effusion. Liver: Cirrhotic liver. Gallbladder and Biliary Tree: Unremarkable Spleen: Unremarkable Pancreas: The pancreas is normal in appearance without focal lesions or abnormal enhancement. Adrenal Glands: Unremarkable Kidneys: No hydronephrosis. Bladder: Unremarkable Bowel: The stomach is grossly normal in appearance. Small bowel and colon are normal in caliber and d istribution. The appendix is not visualized; however, no secondary findings of acute appendicitis id entified. Ascites: Moderate to large volume abdominopelvic ascites. Lymphadenopathy: No mesenteric, retroperitoneal or periportal lymphadenopathy. Abdominal Wall and Mesentery: Diffuse anasarca. Vasculature: The visualized abdominal aorta is normal in size and caliber. Abdominal and pelvic vess els demonstrate normal enhancement. Pelvic Organs: Unremarkable Musculoskeletal: No aggressive focal bony lesions, acute fractures or dislocation. Right-sided hip ar throplasty in place. IMPRESSION: 1. Cirrhotic liver. 2. Moderate to large volume abdominopelvic ascites. 3. Multifocal pneumonia. 4. Moderate pericardial effusion 5. Unable to evaluate for acute GI bleed in this limited portal venous phase CT. If there is ongoing concern for acute GI bleed, recommend CTA triple phase of the abdomen and pelvis Radiation optimization: All CT scans at this facility use at least one of these dose optimization te chniques: automated exposure control mA and/or kV adjustment per patient size (includes targeted exa ms where dose is matched to clinical indication) or iterative reconstruction.
[2024-07-13] MEDS ORDERED: NITROGLYCERIN 0.4 MG SL TAB SL PRN (23:15)
[2024-07-13] MEDS ORDERED: MORPHINE SULFATE INJ 2 MG/ml SYRG IV PRN ×2 (23:15)
[2024-07-14] VITALS (17 sets, daily range): BP systolic 114–144; BP diastolic 57–80; PULSE 75–105; RESP 16–23; TEMP 97.4–98.5; O2SAT 90–100
[2024-07-14] MEDS: IPRATROPIUM BROM 0.5 MG/2.5ML INH SOL NEB SCH (00:08)
--- NOTE | 2024-07-14 00:30 | DVHHP2 ---
Admitting Diagnosis: GI Bleed, Pneumonia, Ascites History of Present Illness History Source: Patient Exam Limitations: No limitations HPI Mrs. Gabrielle Motta is an 84 year old female who presents with a chief complaint of rectal bleeding onset yesterday. Patient states she woke up from a nap, went to the restroom when she noticed she was experiencing diarrhea and noticed blood in stool. Patient states blood was bright red and bowel movement was water-like. Patient reports loose stool x 3-4 months. Patient states blood clots in loose stool yesterday, which prompted her to come to the hospital. Patient endorses generalized edema. Patient reports being on Coumadin. Patient has a past medical history of HTN, HLD, CVA, Afib, CHF, hypothyroid, liver cirrhosis, gallstones, unspecified kidney disease. Patient denies fall, abdominal pain, vomiting, constipation, headache, chest pain, shortness of breath, dysuria, hematuria. Patient admitted for further evaluation. Home Meds Active Scripts Metronidazole (Flagyl) 500 Mg Tab, 1 TAB PO TID for 10 Days, #30 TAB Prov:DANA RIOS MD 03/04/24 Ciprofloxacin Hcl (Cipro) 500 Mg Tab, 1 TAB PO BID for 10 Days, #20 TAB Prov:DANA RIOS MD 03/04/24 Pantoprazole Sodium Sesquihydr (Pantoprazole Sodium) 40 Mg Tab, 40 MG PO DAILY@0600, #60 TAB Prov:ANTONY RUSSELL MD 02/03/24 Furosemide (Lasix) 40 Mg Tab, 40 MG PO BID, #60 TAB Prov:DAWSON GUARDADO MD 08/22/23 Potassium Chloride (Potassium Chloride ER) 10 Meq Tab, 10 MEQ PO DAILY, #30 TAB Prov:DAWSON GUARDADO MD 08/22/23 Reported Medications Cholecalciferol (VITAMIN D3) 1,000 Unit Chw, 1000 UNIT PO DAILY, TAB.CHEW 08/21/23 Thiamine Hcl (VITAMIN B-1) 100 Mg Tb, 100 MG PO DAILY, TAB 08/21/23 Magnesium Oxide (MAGNESIUM OXIDE) 400 Mg Tab, 1 TAB PO DAILY, #30 TAB 5 Refills 08/21/23 Metoclopramide Hcl (Metoclopramide Hcl) 5 Mg Tab, 10 MG PO Q8HPRN PRN for FOR STOMACH DISTRESS, TAB 08/21/23 Albuterol Sulfate (Albuterol Sulfate Hfa) 108 Mcg/Act Aer, 2 PUFF IN TID PRN for SHORTNESS OF BREATH 03/17/23 Alprazolam (Alprazolam) 0.5 Mg Tab, 1 TAB PO HS 03/17/23 Levothyroxine Sodium (Levothyroxine Sodium) 88 Mcg Tab, 88 MCG PO QAM 03/17/23 Simvastatin (Simvastatin) 10 Mg Tab, 10 MG PO DAILY 03/17/23 Metoprolol Tartrate (Metoprolol Tartrate) 25 Mg Tab, 25 MG PO DAILY 03/17/23 Past Medical History Cardiac: AFIB, CHF, HTN, Hyperlipidemia Renal/: CKD Endocrine: Hypothyroidism Others liver cirrhosis, gallstones, MVP Patient Family History: Alcoholism G8 MOTHER Cardiovascular disease G8 MOTHER Cerebrovascular accident (CVA) G8 FATHER Diabetes mellitus G8 MOTHER Hypertension G8 MOTHER G8 FATHER Smoker: No Hx (Negative) Alocohol: None Drugs: None Domestic Violence: Neg Review of Systems Constitutional: Other (generalized edema) Ears, Nose, & Throat: No symptom reported Eyes: No symptom reported Pulmonary/Respiratory: No symptom reported Cardiovascular: No symptom reported Gastrointestinal: Diarrhea, Hematochezia (with blood clots) Genitourinary: No symptom reported Musculoskeletal: No symptom reported Skin: No symptom reported Psychiatric: No symptom reported Endocrine: No symptom reported Hemotologic/Lymphatic: No symptom reported H&P Exam Vital Signs Vital Signs Date Time Temp Pulse Resp B/P (MAP) Pulse Ox O2 Delivery O2 Flow Rate FiO2 07/14/24 00:14 97 18 97 07/14/24 00:08 Room Air 0.0 07/14/24 00:08 21 07/13/24 19:20 98.2 144/80 (101) General Appeara: Well developed, Well nourished, Normal Appearance Head Exam: Normal inspection Neck Exam: Normal inspection, Non-tender, Normal alignment Eye Exam: bilateral eye Normal inspection, bilateral eye PERRL, bilateral eye EOMI, bilateral eye Abnormal EOM Ear Exam: bilateral ear Auricle normal Nasal Exam: Normal inspection Mouth: Normal Inspection Pulmonary/Respiratory: Normal inspection, Normal breath sounds, Chest non- tender, Lungs clear Cardiovascular/Chest: Normal inspection, Edema (bilateral lower extremity +2 pitting edema), Normal Rhythm, Irregularly irregular Peripheral Pulses: 2+ dorsalis pedis (R), 2+ dorsalis pedis (L), 2+ Radial (R), 2+ Radial (L) Abdominal Exam: Normal bowel sounds, Soft, No tenderness Rectal Exam: Deferred Back Exam: Normal inspection Pelvic Exam: Not done Legs: bilateral leg swelling (+2 pitting edema) 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 Exam: Normal hearing, Normal speech, PERRL Motor/Sensory: Normal sensory function, Normal motor function Neuro/Mental St: Alert, Oriented Appearance: Appropriate appearance, Appropriate insight, Memory impairment Eye contact/ Speech: Cooperative, Good eye contact, Normal speech Thoughts/Psych: Normal thought pattern Skin Exam: Normal inspection, Warm/dry, Pallor Labs/Xrays Labs Test 07/13/24 22:18 07/13/24 19:49 Range/Units Lactic Acid Level 1.3 0.4-2.0 mmol/L White Blood Count 4.6 4.4-10.8 10^3/uL Red Blood Count 3.04 L 4.0-5.20 10^6/uL Hemoglobin 10.1 L 12.2-16.2 g/dL Hematocrit 30.7 L 36.0-46.0 % Mean Corpuscular Volume 101.0 H 80.0-100.0 fL Mean Corpuscular Hemoglobin 33.2 H 28.0-32.0 pg Mean Corpuscular Hemoglobin Concent 32.9 32.0-36.0 g/dL Red Cell Distribution Width 17.7 H 11.8-14.3 % Platelet Count 119 L 140-450 10^3/uL Mean Platelet Volume 7.1 6.9-10.8 fL Neutrophils (%) (Auto) 59.4 37.0-80.0 % Lymphocytes (%) (Auto) 20.4 10.0-50.0 % Monocytes (%) (Auto) 12.5 H 0.0-12.0 % Eosinophils (%) (Auto) 6.4 0.0-7.0 % Basophils (%) (Auto) 1.3 0.0-2.0 % Neutrophils # (Auto) 2.8 1.6-8.6 10 ^3/uL Lymphocytes # (Auto) 0.9 0.4-5.4 10 ^3/uL Monocytes # (Auto) 0.6 0-1.3 10 ^3/uL Eosinophils # (Auto) 0.3 0-0.8 10 ^3/uL Basophils # (Auto) 0.1 0-0.2 10 ^3/uL Nucleated Red Blood Cells 0.1 % Prothrombin Time 16.3 H 9.3-11.8 sec Prothrombin Time INR 1.61 H 0.9-1.15 Sodium Level 137 136-145 mmol/L Potassium Level 4.5 3.5-5.1 mmol/L Chloride Level 102 98-107 mmol/L Carbon Dioxide Level 30 20-31 mmol/L Anion Gap 5 5-15 Blood Urea Nitrogen 12 9-23 mg/dL Creatinine 1.24 H 0.550-1.02 mg/dL Glomerular Filtration Rate Calc 42 >90 mL/min BUN/Creatinine Ratio 9.7 L 10.0-20.0 Serum Glucose 112 H 74-106 mg/dL Calcium Level 8.3 L 8.7-10.4 mg/dL B-Type Natriuretic Peptide 747.78 0-100 pg/mL Assessment/Plan Problem List: (1) Lower GI bleed (2) Multifocal pneumonia (3) Ascites (4) Pericardial effusion Plan This is an 84 yo female with a history of hypertension, hyperlipidemia, Atrial fibrillation, CHF, CVA, liver cirrhosis, hypothyroid, gallstones, kidney disease presents to the hospital with rectal bleeding x 1 day. Patient found to have 1. GI Bleed 2. Multifocal Pneumonia 3. Ascites 4. Pericardial effusion PLAN Admit Telemetry unit GI consultation, NPO, PPI Protonix IV Interventional radiology consultation Cardiology consultation, 2D echocardiogram Fluid restriction, IV diuresis Furosemide strict I&O IV antibiotic Levaquin Duo Neb Treatments Stool occult blood, stool culture serial H&H Monitor BMP , CBC BNP level Discussed all above with patient who verbalizes agreement and understanding of care plan. All questions were answered. Discussed assessment and care plan with supervising MD. Plan discussed with: Patient, Other Code Visit Code Visit Total Time (mins): 45 Additional Comments Additional Comments Additional Comments 84-year-old female with a known history of liver cirrhosis, congestive heart failure with systolic dysfunction, initially present with the hospital with a bloody stools found to have 1. Rectal bleeding 2. Paroxysmal AFib currently on warfarin 3. Large ascites status post paracentesis 4. Pericardial effusion 5. Pulmonary venous congestion/multifocal pneumonia 6. Acute kidney injury suspected secondary to vasomotor nephropathy -hold anticoagulation, GI consultation, continue Protonix -monitor H&H -physical therapy evaluation and treatment, discharge plan. JUAN TROY Jul 14, 2024 00:30 ANTONY RUSSELL MD Jul 14, 2024 14:08
[2024-07-14] MEDS: VANCOMYCIN 1GM/250ML KIT 200 ML IV ONE (01:14)
[2024-07-14] MEDS: SODIUM CHLORIDE 0.9% 1,000 ML IV ONE (01:14)
[2024-07-14] MEDS: AZITHROMYCIN 250 MG TAB PO ONE (01:15)
[2024-07-14] MEDS: PANTOPRAZOLE 40 MG/10 ML VIAL INJ IV SCH (01:15)
[2024-07-14] MEDS: FUROSEMIDE 40 MG/4 ML VIAL IV ONE (02:33)
[2024-07-14] MEDS: ONDANSETRON HCL 4 MG/2 ML VIAL IV PRN (02:33)
[2024-07-14] MEDS: CEFEPIME 2GM/50ML NS 50 ML IV ONE (03:25)
[2024-07-14 05:28] LABS: Basophils # (auto) 0.1 10 ^3/uL (0-0.2); Basophils % (auto) 1.3 % (0.0-2.0); Eosinophils # (auto) 0.2 10 ^3/uL (0-0.8); Eosinophils % (auto) 4.1 % (0.0-7.0); Hematocrit 28.1 % (36.0-46.0); Hemoglobin 9.5 g/dL (12.2-16.2); Lymphocytes # (auto) 0.9 10 ^3/uL (0.4-5.4); Lymphocytes % (auto) 19.5 % (10.0-50.0); Mean Corpuscular Hemoglobin 33.5 pg (28.0-32.0); Mean Corpuscular Hgb Conc. 33.7 g/dL (32.0-36.0); Mean Corpuscular Volume 99.3 fL (80.0-100.0); Monocytes # (auto) 0.5 10 ^3/uL (0-1.3); Monocytes % (auto) 11.1 % (0.0-12.0); Platelet Count (auto) 113 10^3/uL (140-450); Red Blood Cells 2.83 10^6/uL (4.0-5.20); Red Cell Distribution Width 17.3 % (11.8-14.3); White Blood Cell 4.7 10^3/uL (4.4-10.8)
[2024-07-14 05:48] LABS: Chloride 102 mmol/L (98-107); Potassium 4.5 mmol/L (3.5-5.1); Sodium 138 mmol/L (136-145)
[2024-07-14 05:49] LABS: Anion Gap 5 (5-15)
[2024-07-14 05:54] LABS: BUN/Creatinine Ratio 10.9 (10.0-20.0); Blood Urea Nitrogen 12 mg/dL (9-23); Glucose 96 mg/dL (74-106)
[2024-07-14 05:56] LABS: Calcium 8.7 mg/dL (8.7-10.4); Carbon Dioxide 31 mmol/L (20-31)
[2024-07-14] MEDS: FUROSEMIDE 40 MG/4 ML VIAL IV SCH (08:18)
[2024-07-14] MEDS: levoFLOXacin 500MG 100 ML IV SCH (08:21)
--- NOTE | 2024-07-14 08:47 | DVH ---
ULTRASOUND ABDOMEN limited, 4 QUADRANTS INDICATION: FLUID CHECK FOR POSSIBLE PARACENTESIS Evaluate for ascites. TECHNIQUE: The four quadrants of the abdomen were scanned in hernández-scale to assess for the presence of ascites. N o solid organ assessment was performed. FINDINGS/IMPRESSIONS: Moderate volume ascites.
--- NOTE | 2024-07-14 09:26 | DVHCONRES ---
Date Seen: Jul 14, 2024 Resident Creating Document: DUONG COHN RESIDENT History of Present Illness Ms. Motta is a 84-year-old female with PMHx of liver cirrhosis unspecified cause, hypertension, prior CVA, atrial fibrillation on warfarin, hypothyroidism who presented to the ER with a chief complaint of loose watery and bloody stool for the past 2 days. She reports having loose watery bowel movements starting March last year, and intermittent blood in his stools. She had her annual fit test which was negative. Never had a colonoscopy in her lifetime. On 07/12, she experienced bloating, which was followed by a large bowel movement which was bloody, maroon red and some fresh blood. She was hospitalized in this facility in January 2024 when she had melena and hematemesis for which she underwent EGD which showed grade 1 esophageal varices and portal hypertension gastropathy. Last dose of warfarin 1 mg was Thursday night. Patient seen and examined at bedside in ER. Telemetry shows atrial fibrillation. Constitutional: Reports lightheadedness, generalized weakness Eyes: No Pain, No Vision change, No Conjunctivae inflammation, No Eyelid inflammation, No Other, No Redness ENT: No Ear pain, No Ear discharge, No Nose pain, No Nose discharge, No Nose congestion, No Mouth pain, No Mouth swelling, No Throat pain, No Throat swelling, No Other Cardiovascular: No Chest Pain, No Palpitations, No Orthopnea, No PND, No Edema, No Lt Headedness, No Other Respiratory: No Cough, No Dry, No Shortness of breath, No SOB with exertion, No Wheezing, No Hemoptysis, No Pleuritic Pain, No Sputum, No Other Gastrointestinal: Reports nausea, bloody stool, denies constipation /diarrhea/abdominal pain/vomiting Genitourinary: No Dysuria, No Frequency, No Incontinence, No Hematuria, No Retention, No Other Musculoskeletal: No other, No neck pain, No shoulder pain, No arm pain, No back pain, No hand pain, No leg pain, No foot pain Skin: No Rash, No Lesions, No Jaundice, No Bruising, No Other Family History: Alcoholism G8 MOTHER Cardiovascular disease G8 MOTHER Cerebrovascular accident (CVA) G8 FATHER Diabetes mellitus G8 MOTHER Hypertension G8 MOTHER G8 FATHER Allergies: Coded Allergies: Codeine (Verified Allergy, Severe, HALLUCINATION, 03/17/23) Oxycodone (Verified Allergy, Severe, NAUSEA, LIGHT HEADEDNESS, 03/17/23) Sulfamethoxazole (Verified Allergy, Severe, ILLUSION, 03/17/23) Home Meds Active Scripts Metronidazole (Flagyl) 500 Mg Tab, 1 TAB PO TID for 10 Days, #30 TAB Prov:DANA RIOS MD 03/04/24 Ciprofloxacin Hcl (Cipro) 500 Mg Tab, 1 TAB PO BID for 10 Days, #20 TAB Prov:DANA RIOS MD 03/04/24 Pantoprazole Sodium Sesquihydr (Pantoprazole Sodium) 40 Mg Tab, 40 MG PO DAILY@0600, #60 TAB Prov:ANTONY RUSSELL MD 02/03/24 Furosemide (Lasix) 40 Mg Tab, 40 MG PO BID, #60 TAB Prov:DAWSON GUARDADO MD 08/22/23 Potassium Chloride (Potassium Chloride ER) 10 Meq Tab, 10 MEQ PO DAILY, #30 TAB Prov:DAWSON GUARDADO MD 08/22/23 Reported Medications Cholecalciferol (VITAMIN D3) 1,000 Unit Chw, 1000 UNIT PO DAILY, TAB.CHEW 08/21/23 Thiamine Hcl (VITAMIN B-1) 100 Mg Tb, 100 MG PO DAILY, TAB 08/21/23 Magnesium Oxide (MAGNESIUM OXIDE) 400 Mg Tab, 1 TAB PO DAILY, #30 TAB 5 Refills 08/21/23 Metoclopramide Hcl (Metoclopramide Hcl) 5 Mg Tab, 10 MG PO Q8HPRN PRN for FOR STOMACH DISTRESS, TAB 08/21/23 Albuterol Sulfate (Albuterol Sulfate Hfa) 108 Mcg/Act Aer, 2 PUFF IN TID PRN for SHORTNESS OF BREATH 03/17/23 Alprazolam (Alprazolam) 0.5 Mg Tab, 1 TAB PO HS 03/17/23 Levothyroxine Sodium (Levothyroxine Sodium) 88 Mcg Tab, 88 MCG PO QAM 03/17/23 Simvastatin (Simvastatin) 10 Mg Tab, 10 MG PO DAILY 03/17/23 Metoprolol Tartrate (Metoprolol Tartrate) 25 Mg Tab, 25 MG PO DAILY 03/17/23 Current Medications Current Medications Medications (Trade) Dose Ordered Sig/Rylee Route PRN Reason Start Time Stop Time Status Last Admin Morphine Sulfate 2 mg Q30M PRN IV FOR CHEST PAIN 07/13/24 23:15 Hold Nitroglycerin (Ntrostat Sublingual) 0.4 mg Q5MINP PRN SL FOR CHEST PAIN 07/13/24 23:15 Ondansetron HCl (Zofran) 4 mg Q6HPRN PRN IV NAUSEA / VOMITING 07/13/24 23:15 07/14/24 02:33 Pantoprazole Sodium (Protonix) 40 mg BID IV 07/13/24 23:15 07/14/24 08:18 Levofloxacin/ Dextrose 100 ml @ 100 mls/hr DAILY IV 07/14/24 10:00 Ipratropium [place] (Atrovent Medneb) 0.5 mg Q6HR NEB 07/14/24 00:00 07/14/24 08:19 Morphine Sulfate 2 mg Q6HPRN PRN IV PAIN SCALE 1 THRU 6 07/13/24 23:15 Hold Furosemide (Lasix Injection) 40 mg BIDD IV 07/14/24 08:00 07/14/24 08:18 Vital Signs Vital Signs Date Time Temp Pulse Resp B/P (MAP) Pulse Ox O2 Delivery O2 Flow Rate FiO2 07/14/24 09:02 98.4 100 16 118/55 (76) 98 98.4 07/14/24 08:19 Room Air 0.0 07/14/24 08:19 21 Physical Exam Elderly female patient lying in bed, well conversational and pleasant, not in acute distress General: Elderly, afebrile, palor, mucosae are moist Cardiovascular: IrRegular S1 and S2. No murmurs, gallops or rubs. No JVD elevation. No pedal edema Respiratory: Normal B/L air entry on room air. Clear lung sounds on auscultation Abdomen: Soft, nontender, resolving distention after paracentesis, normoactive bowel sounds, no rebound tenderness, no organomegaly, no masses Genitourinary: Deferred MSK/skin: Mobilizes 4 limbs. Skin is dry and warm Neurological: No motor, no sensitive deficits, normal speech. Pupils are isocoric and reactive. Psych/Mental Status: A/Ox4 Labs/Diagnostic Data Labs Test 07/14/24 05:02 07/13/24 22:18 07/13/24 19:49 Range/Units White Blood Count 4.7 4.4-10.8 10^3/uL Red Blood Count 2.83 L 4.0-5.20 10^6/uL Hemoglobin 9.5 L 12.2-16.2 g/dL Hematocrit 28.1 L 36.0-46.0 % Mean Corpuscular Volume 99.3 80.0-100.0 fL Mean Corpuscular Hemoglobin 33.5 H 28.0-32.0 pg Mean Corpuscular Hemoglobin Concent 33.7 32.0-36.0 g/dL Red Cell Distribution Width 17.3 H 11.8-14.3 % Platelet Count 113 L 140-450 10^3/uL Mean Platelet Volume 7.1 6.9-10.8 fL Neutrophils (%) (Auto) 64.0 37.0-80.0 % Lymphocytes (%) (Auto) 19.5 10.0-50.0 % Monocytes (%) (Auto) 11.1 0.0-12.0 % Eosinophils (%) (Auto) 4.1 0.0-7.0 % Basophils (%) (Auto) 1.3 0.0-2.0 % Neutrophils # (Auto) 3.0 1.6-8.6 10 ^3/uL Lymphocytes # (Auto) 0.9 0.4-5.4 10 ^3/uL Monocytes # (Auto) 0.5 0-1.3 10 ^3/uL Eosinophils # (Auto) 0.2 0-0.8 10 ^3/uL Basophils # (Auto) 0.1 0-0.2 10 ^3/uL Nucleated Red Blood Cells 0.0 % Sodium Level 138 136-145 mmol/L Potassium Level 4.5 3.5-5.1 mmol/L Chloride Level 102 98-107 mmol/L Carbon Dioxide Level 31 20-31 mmol/L Anion Gap 5 5-15 Blood Urea Nitrogen 12 9-23 mg/dL Creatinine 1.10 H 0.550-1.02 mg/dL Glomerular Filtration Rate Calc 49 >90 mL/min BUN/Creatinine Ratio 10.9 10.0-20.0 Serum Glucose 96 74-106 mg/dL Calcium Level 8.7 8.7-10.4 mg/dL Lactic Acid Level 1.3 0.4-2.0 mmol/L Prothrombin Time 16.3 H 9.3-11.8 sec Prothrombin Time INR 1.61 H 0.9-1.15 B-Type Natriuretic Peptide 747.78 0-100 pg/mL Assessment Assessment: Liver cirrhosis - negative Hepatitis panel 01/2024, nonalcoholic Chronic diarrhea - intermittent bloody Large volume abdominopelvic ascites Pericardial effusion Multifocal pneumonia Atrial fibrillation - CHADS-VASc 06 Systolic congestive heart failure - no exacerbation OSCAR likely VMN Imaging: CT abdomen 07/13 shows cirrhotic liver. [id number] volume abdominopelvic ascites. Multifocal pneumonia. Moderate pericardial effusion. EGD 01/2024 - grade 1 esophageal varices with esophagitis and portal hypertension gastropathy Plan: Supportive treatment for now. Patient would benefit from colonoscopy. Recommend cardiology clearance. Continue holding anticoagulation/NSAIDs Continue pantoprazole 40 mg b.i.d. IV Patient underwent US-guided paracentesis with 4.2L removed. Follow up with the stool studies Diet: Clear liquid Plan discussed with patient and at bedside in which all questions have been answered Case discussed with Dr. Redman Plan discussed with: Patient, Spouse (At the bedside) DUONG COHN RESIDENT Jul 14, 2024 09:26
[2024-07-14 09:45] LABS: Albumin 2.6 g/dL (3.2-4.8); Bilirubin, Direct 0.7 mg/dL (<0.3); Bilirubin, Total 1.4 mg/dL (0.2-1.0); Total Protein 6.6 g/dL (5.7-8.2)
--- NOTE | 2024-07-14 10:16 | DVH ---
US PARACENTESIS, HISTORY: ASCITES PROCEDURE: Informed consent was obtained. The patient was placed in supine position. A limited locali zation ultrasound of the abdomen was obtained, and the skin site over the largest pocket of fluid was marked and entry site was prepped with chlorhexidine which was allowed to dry and draped in the usua l sterile fashion. Time out was performed. Following administration of 1% lidocaine local anesthetic, a 5 [place] centesis needle catheter was percutaneously inserted into the peritoneal collection until fluid was aspirated. The catheter was advanced into the fluid collection and the needle removed. Abo ut 4200 cc of fluid was aspirated . The catheter was then removed and a sterile dressing applied. No immediate complication was identified. FINDINGS: Limited ultrasound imaging demonstrates mild to moderate ascites. Aspirated fluid was clear and serous. IMPRESSION: US-guided paracentesis with 4.2L removed.
[2024-07-14 12:45] LABS: Body Fluid Red Blood Cells 107 CUMM (0-2000); Body Fluid White Blood Cells 175 CUMM (0-200)
[2024-07-14 12:55] LABS: Body Fluid Polymorphonuclear 12 % (0-25)
--- NOTE | 2024-07-14 12:56 | ECG ---
[facility] Test Date: 2024-07-13 Test Time: 19:23:10 Pat Name: BETY HART Department: er Room: [facility]9T A Gender: F Dining Room Host: : [id number] Requested By: MARY KAPOOR Order Number: [id number] Reading MD: Jack Houston Measurements Intervals [place] Rate: 86 P: 0 AR: 0 QRS: 24 QRSD: 118 T: -28 QT: 415 QTc: 497 Interpretive Statements Atrial fibrillation Incomplete right bundle branch block Low voltage, extremity leads Nonspecific T abnormalities, lateral leads Electronically Signed On 07-15-2024 13:15:26 PST by Jack Houston Please click the below link to view image of tracing.
[2024-07-14 13:54] LABS: Hematocrit 29.1 % (36.0-46.0); Hemoglobin 9.5 g/dL (12.2-16.2)
[2024-07-14 14:01] LABS: INR 1.67 (0.9-1.15); Partial Thromboplastin Time 35.9 SEC (24.5-34.5); Prothrombin Time 16.8 sec (9.3-11.8)
[2024-07-14 18:28] LABS: Hematocrit 30.1 % (36.0-46.0); Hemoglobin 10.1 g/dL (12.2-16.2)
[2024-07-15] VITALS (14 sets, daily range): BP systolic 102–128; BP diastolic 58–84; PULSE 51–114; RESP 14–19; TEMP 97.6–98.3; O2SAT 94–100
[2024-07-15 02:07] LABS: Hematocrit 28.3 % (36.0-46.0); Hemoglobin 9.4 g/dL (12.2-16.2)
[2024-07-15 07:19] LABS: Basophils # (auto) 0 10 ^3/uL (0-0.2); Eosinophils # (auto) 0.3 10 ^3/uL (0-0.8); Hematocrit 26.9 % (36.0-46.0); Hemoglobin 9.1 g/dL (12.2-16.2); Lymphocytes # (auto) 0.9 10 ^3/uL (0.4-5.4); Lymphocytes % (auto) 19.8 % (10.0-50.0); Mean Corpuscular Hemoglobin 33.8 pg (28.0-32.0); Mean Corpuscular Hgb Conc. 33.9 g/dL (32.0-36.0); Mean Corpuscular Volume 99.7 fL (80.0-100.0); Monocytes # (auto) 0.6 10 ^3/uL (0-1.3); Monocytes % (auto) 12.2 % (0.0-12.0); Neutrophils # (auto) 2.8 10 ^3/uL (1.6-8.6); Nucleated Red Blood Cells % 0.4 %; Platelet Count (auto) 93 10^3/uL (140-450); Red Cell Distribution Width 17.3 % (11.8-14.3); White Blood Cell 4.6 10^3/uL (4.4-10.8)
[2024-07-15 07:25] LABS: Chloride 103 mmol/L (98-107); Potassium 4.6 mmol/L (3.5-5.1); Sodium 141 mmol/L (136-145)
[2024-07-15 07:26] LABS: Anion Gap 6 (5-15); Calcium 8.3 mg/dL (8.7-10.4); Carbon Dioxide 32 mmol/L (20-31)
[2024-07-15 07:31] LABS: Glucose 79 mg/dL (74-106)
[2024-07-15 07:36] LABS: BUN/Creatinine Ratio 9.8 (10.0-20.0); Blood Urea Nitrogen 12 mg/dL (9-23)
--- NOTE | 2024-07-15 09:39 | DVHSR ---
APPROVED REPORT EXAM: Two-dimensional and M-mode echocardiogram with Doppler and color Doppler. Blood Pressure: 115/64 mmHg INDICATION Pericardial Effusion RISK FACTORS Height: 5'2", Weight: 134 DIMENSIONS LVDd3.5 (3.8-5.7cm)LA (2D)3.7 (1.9-4.0cm)Aortic Root2.3 (2.0-3.7cm) LVDs2.0 (2.5-4.0cm)LA (MM) (1.9-4.0cm)Aortic Cusp Exc1.3 (1.5-2.0cm) EF (%) 75.0 (55-70%)Rt. Atrium4.5 (1.9-4.0cm)Asc. Aorta cm IVSd2.4 (0.7-1.1cm)RV (D)4.2 (1.8-2.4cm) PWd0.9 (0.7-1.1cm) Mitral Valve MitralMitral Stenosis E wave0.70m/sMV Mean GR.mmHg E/A ratio0.02D MVAcm2 Aortic Valve Aortic ValveAortic Stenosis V10.79m/René Mean GR.6mmHg V21.58m/René Peak GR.10mmHg LVOT Diameter1.7 (1.8-2.4cm)Doppler AVA1.13cm2 Pulmonic Valve V20.93m/s Tricuspid Valve TR Velocity2.09m/s [id number] Conclusion Undetermined rhythm. Concentric LVH. Left atrial enlargement. Right atrial and right ventricular enlargement. Valves appear to be structurally normal. EF of 60% with normal right ventricular function. Mild tricuspid regurgitation. [id number] pericardial effusion not hemodynamically significant. No diastolic collapse deline ated. No masses or vegetations discernible
--- NOTE | 2024-07-15 09:58 | DVHPN2 ---
Progress Note Date Seen: Jul 15, 2024 Resident Creating Document: DUONG COHN RESIDENT Medical Necessity Reason Pt with a Central, PICC or Fol: No Subjective Review of Systems Ms. Motta is a 84-year-old female with PMHx of liver cirrhosis unspecified cause, hypertension, prior CVA, atrial fibrillation on warfarin, hypothyroidism who presented to the ER with a chief complaint of loose watery and bloody stool for the past 2 days. She reports having loose watery bowel movements starting March last year, and intermittent blood in his stools. She had her annual fit test which was negative. Never had a colonoscopy in her lifetime. On 07/12, she experienced bloating, which was followed by a large bowel movement which was bloody, maroon red and some fresh blood. She was hospitalized in this facility in January 2024 when she had melena and hematemesis for which she underwent EGD which showed grade 1 esophageal varices and portal hypertension gastropathy. Last dose of warfarin 1 mg was Thursday night. Patient seen and examined at bedside at the bedside. Telemetry shows atrial fibrillation. Objective vital signs Vital Sign Date Time Temp Pulse Resp B/P (MAP) Pulse Ox O2 Delivery O2 Flow Rate FiO2 07/15/24 09:00 98.3 51 19 116/84 (95) 94 98.3 07/15/24 07:11 Nasal Cannula 2.0 07/15/24 07:11 28 Total Intake and Output 07/14/24 07/14/24 07/15/24 15:00 23:00 07:00 Intake Total 12.5 ml 120 ml 120 ml Output Total 0 ml Balance 12.5 ml 120 ml 120 ml medications Current Medications Medications Dose Ordered Sig/Rylee Route Start Time Stop Time Status Last Admin Dose Admin Morphine Sulfate 2 mg Q30M PRN IV 07/13/24 23:15 Hold Nitroglycerin 0.4 mg Q5MINP PRN SL 07/13/24 23:15 Ondansetron HCl 4 mg Q6HPRN PRN IV 07/13/24 23:15 07/14/24 02:33 4 MG Pantoprazole Sodium 40 mg BID IV 07/13/24 23:15 07/14/24 22:16 40 MG Levofloxacin/ Dextrose 100 ml @ 100 mls/hr DAILY IV 07/14/24 10:00 Ipratropium [place] 0.5 mg Q6HR NEB 07/14/24 00:00 07/15/24 07:11 0.5 MG Morphine Sulfate 2 mg Q6HPRN PRN IV 07/13/24 23:15 Hold Furosemide 40 mg BIDD IV 07/14/24 08:00 07/15/24 06:24 40 MG Examination Elderly female patient lying in bed, well conversational and pleasant, not in acute distress General: Elderly, afebrile, palor, mucosae are moist Cardiovascular: IrRegular S1 and S2. No murmurs, gallops or rubs. No JVD elevation. No pedal edema Respiratory: Normal B/L air entry on room air. Clear lung sounds on auscultation Abdomen: Soft, nontender, resolving distention after paracentesis, normoactive bowel sounds, no rebound tenderness, no organomegaly, no masses Genitourinary: Deferred MSK/skin: Mobilizes 4 limbs. Skin is dry and warm Neurological: No motor, no sensitive deficits, normal speech. Pupils are isocoric and reactive. Psych/Mental Status: A/Ox4 laboratory and microbiology Laboratory Tests 07/15/24 05:45 Test 07/15/24 05:45 Range/Units Serum Glucose 79 74-106 mg/dL Microbiology Date/Time Source Procedure Growth Status 07/14/24 10:08 Ascities Fluid Gram Stain - Final Resulted 07/14/24 10:08 Ascities Fluid Body Fluid Culture - Preliminary Resulted 07/13/24 22:18 Blood Blood Culture - Preliminary NO GROWTH AFTER 24 HOURS OF INCUBATION. Resulted Labs and/or images reviewed: Labs reviewed by me, Image(s) reviewed by me Problem List/Assessment/Plan Problem List/Assessment/Plan Assessment: Liver cirrhosis - negative Hepatitis panel 01/2024, nonalcoholic Chronic diarrhea - intermittent bloody Large volume abdominopelvic ascites Pericardial effusion Multifocal pneumonia Atrial fibrillation - CHADS-VASc 06 Systolic congestive heart failure - no exacerbation OSCAR likely VMN Imaging: CT abdomen 07/13 shows cirrhotic liver. Gbwzyide-[id number]-csttc volume abdominopelvic ascites. Multifocal pneumonia. Moderate pericardial effusion. EGD 01/2024 - grade 1 esophageal varices with esophagitis and portal hypertension gastropathy Plan: Hemoglobin stable at 9.1. Continue supportive treatment for now. Patient would benefit from colonoscopy. Recommend cardiology clearance. Patient underwent US-guided paracentesis 07/14 with 4.2L removed. Follow up with the ascitic fluid studies Continue holding anticoagulation/NSAIDs Continue pantoprazole 40 mg b.i.d. IV Follow up with the stool studies Diet: Clear liquid Plan discussed with patient and at bedside in which all questions have been answered Case discussed with Dr. Redman Plan discussed with: Patient, Spouse My Orders My Orders Orders - DUONG COHN Procedure Category Date Status Time Stool Wbc LAB 07/14/24 Logged 10:43 Ova & Parasite Exam MORGAN 07/14/24 Uncollected 10:43 Stool Bacterial MORGAN 07/14/24 Uncollected Culture 10:43 Communication Order ORDERS 07/14/24 Transmitted 11:08 Clear Liq Diet DIET 07/14/24 Transmitted Lunch DUONG COHN Jul 15, 2024 09:57
--- NOTE | 2024-07-15 16:27 | DVHINCON2 ---
Date Seen: Jul 15, [address] Russell Reason for Consultation Pericardial effusion History of Present Illness 84-year-old lady with a history of severe tricuspid insufficiency has developed rectal bleeding. She needs a colonoscopy. Given history of previous valvulopathy Cardiac evaluation was requested. She went to the restroom prior to coming to the hospital and experienced diarrhea with blood. Her hemoglobin globin has dropped significantly. She is pending endoscopy. Previously known history of severe tricuspid insufficiency. No history of coronary anomalies. Past Medical History Past medical history significant for tricuspid insufficiency hyperlipidemia. Hypothyroidism. Recently found pericardial effusion. Ascites.Atrial fibrillation. Chronic kidney disease. Coagulopathy. Past Surgical History Noncontributory. Family History: Alcoholism G8 MOTHER Cardiovascular disease G8 MOTHER Cerebrovascular accident (CVA) G8 FATHER Diabetes mellitus G8 MOTHER Hypertension G8 MOTHER G8 FATHER Allergies: Coded Allergies: Codeine (Verified Allergy, Severe, HALLUCINATION, 03/17/23) Oxycodone (Verified Allergy, Severe, NAUSEA, LIGHT HEADEDNESS, 03/17/23) Sulfamethoxazole (Verified Allergy, Severe, ILLUSION, 03/17/23) Home Meds Active Scripts Pantoprazole Sodium Sesquihydr (Pantoprazole Sodium) 40 Mg Tab, 40 MG PO DAILY@0600, #60 TAB Prov:ANTONY RUSSELL MD 02/03/24 Reported Medications Ferrous Sulfate (Gnp Iron) 325 Mg Tab, 1 TAB PO DAILY for 30 Days, #30 07/14/24 Potassium Chloride (Potassium Chloride ER) 20 Meq Tab, 2 TAB PO BID for 90 Days, #360 07/14/24 Furosemide (Furosemide) 80 Mg Tab, 1 TAB PO BID for 90 Days, #180 07/14/24 Alprazolam (Alprazolam) 0.25 Mg Tab, 1 TAB PO BID PRN for PAIN SCALE 7 THRU 10 for 15 Days, #30 07/14/24 Cholecalciferol (VITAMIN D3) 1,000 Unit Chw, 1000 UNIT PO DAILY, TAB.CHEW 08/21/23 Thiamine Hcl (VITAMIN B-1) 100 Mg Tb, 100 MG PO DAILY, TAB 08/21/23 Magnesium Oxide (MAGNESIUM OXIDE) 400 Mg Tab, 1 TAB PO DAILY, #30 TAB 5 Refills 08/21/23 Albuterol Sulfate (Albuterol Sulfate Hfa) 108 Mcg/Act Aer, 2 PUFF INH QID PRN for SHORTNESS OF BREATH for 25 Days, #8.5 03/17/23 Levothyroxine Sodium (Levothyroxine Sodium) 88 Mcg Tab, 1 TAB PO QAM for 90 Days, #90 03/17/23 Simvastatin (Simvastatin) 10 Mg Tab, 1 TAB PO DAILY for 71 Days, #71 03/17/23 Metoprolol Tartrate (Metoprolol Tartrate) 25 Mg Tab, 1 TAB PO DAILY for 90 Days, #180 03/17/23 Discontinued Reported Medications Alprazolam (Alprazolam) 0.5 Mg Tab, 1 TAB PO HS 03/17/23 Review of Systems Weight loss noted. No fevers or chills. Cardiac and respiratory as noted above with a history of tricuspid insufficiency newly found pericardial effusion. Cardiac and respiratory as noted above. GI and musculoskeletal negative. Hematological and oncological negative. Vital Signs Vital Signs Date Time Temp Pulse Resp B/P (MAP) Pulse Ox O2 Delivery O2 Flow Rate FiO2 07/15/24 13:21 96 18 100 07/15/24 13:16 Nasal Cannula 2.0 07/15/24 13:16 28 07/15/24 13:00 97.7 102/65 (77) 97.7 Physical Exam Vital signs as noted. HEENT examination is otherwise unremarkable. Orally poorly hydrated. Pale conjunctiva. Trachea central neck is supple. Thyroid is nonpalpable. No jugular distention no bruits. Lungs reveal diminished air entry. Heart exam reveals an irregular S1-S2. Atrial fibrillation underlying. Abdominal examination is unremarkable. Extremities reveal adequate perfusion without clubbing cyanosis no edema. Neurologically intact. Labs/Diagnostic Data Labs Test 07/15/24 05:45 07/14/24 13:00 07/14/24 10:08 07/14/24 05:02 Range/Units White Blood Count 4.6 4.4-10.8 10^3/uL Red Blood Count 2.70 L 4.0-5.20 10^6/uL Hemoglobin 9.1 L 12.2-16.2 g/dL Hematocrit 26.9 L 36.0-46.0 % Mean Corpuscular Volume 99.7 80.0-100.0 fL Mean Corpuscular Hemoglobin 33.8 H 28.0-32.0 pg Mean Corpuscular Hemoglobin Concent 33.9 32.0-36.0 g/dL Red Cell Distribution Width 17.3 H 11.8-14.3 % Platelet Count 93 L 140-450 10^3/uL Mean Platelet Volume 7.4 6.9-10.8 fL Neutrophils (%) (Auto) 60.0 37.0-80.0 % Lymphocytes (%) (Auto) 19.8 10.0-50.0 % Monocytes (%) (Auto) 12.2 H 0.0-12.0 % Eosinophils (%) (Auto) 7.0 0.0-7.0 % Basophils (%) (Auto) 1.0 0.0-2.0 % Neutrophils # (Auto) 2.8 1.6-8.6 10 ^3/uL Lymphocytes # (Auto) 0.9 0.4-5.4 10 ^3/uL Monocytes # (Auto) 0.6 0-1.3 10 ^3/uL Eosinophils # (Auto) 0.3 0-0.8 10 ^3/uL Basophils # (Auto) 0 0-0.2 10 ^3/uL Nucleated Red Blood Cells 0.4 % Sodium Level 141 136-145 mmol/L Potassium Level 4.6 3.5-5.1 mmol/L Chloride Level 103 98-107 mmol/L Carbon Dioxide Level 32 H 20-31 mmol/L Anion Gap 6 5-15 Blood Urea Nitrogen 12 9-23 mg/dL Creatinine 1.22 H 0.550-1.02 mg/dL Glomerular Filtration Rate Calc 43 >90 mL/min BUN/Creatinine Ratio 9.8 L 10.0-20.0 Serum Glucose 79 74-106 mg/dL Calcium Level 8.3 L 8.7-10.4 mg/dL Prothrombin Time 16.8 H 9.3-11.8 sec Prothrombin Time INR 1.67 H 0.9-1.15 Activated Partial Thromboplast Time 35.9 H 24.5-34.5 SEC Body Fluid Source Ascities fluid Body Fluid pH 8.0 Body Fluid WBC (Manual) 175 0-200 CUMM Body Fluid RBC (Manual) 107 0-2000 CUMM Body Fluid Mononuclear Cells 88 % Body Fluid Polymorphonuclear Cells 12 0-25 % Body Fluid Glucose 100 . mg/dL Body Fluid Total Protein 2.0 . g/dL Body Fluid Lactate Dehydrogenase 86 . IU/L Iron Level 96 50-170 ug/dL Total Iron Binding Capacity 196 L 250-425 ug/dL Percent Iron Saturation 49.0 15-50 % Total Bilirubin 1.4 H 0.2-1.0 mg/dL Direct Bilirubin 0.7 H <0.3 mg/dL Aspartate Amino Transferase (AST) 36 13-40 U/L Alanine Aminotransferase (ALT) 10 7-40 U/L Alkaline Phosphatase 97 46-116 U/L Lactate Dehydrogenase 273 H 120-246 U/L Total Protein 6.6 5.7-8.2 g/dL Albumin 2.6 L 3.2-4.8 g/dL Test 07/13/24 22:18 07/13/24 19:49 Range/Units Lactic Acid Level 1.3 0.4-2.0 mmol/L B-Type Natriuretic Peptide 747.78 0-100 pg/mL Microbiology Date/Time Source Procedure Growth Status 07/14/24 10:08 Ascities Fluid Gram Stain - Final Resulted 07/14/24 10:08 Ascities Fluid Body Fluid Culture - Preliminary Resulted 07/13/24 22:18 Blood Blood Culture - Preliminary NO GROWTH AFTER 24 HOURS OF INCUBATION. Resulted Assessment Rectal bleeding. Severe Tricuspid insufficiency. Small pericardial effusion not hemodynamically significant. stable left ventricular function. Plan/Recommendation Recommend proceeding with colonoscopy. Patient is stable from cardiac standpoint. Rate control with digoxin as needed. Plan discussed with: Patient, Spouse, Son NYHA Physical activity limitations: Class2(Slight)fatigue,sob Date of Service: Jul 15, 2024 Billing Provider: SHARON PALACIOS Sr., MD Cardiology Common Codes: [id number] INP/OBS CARE (High) SHARON PALACIOS Sr., MD Jul 15, 2024 16:27
--- NOTE | 2024-07-15 16:31 | DVHDS2 ---
Discharge Summary Date of Admission Jul 13, 2024 at 23:06 Date of Discharge: Jul 15, 2024 Labs/Diagnostic Data: Laboratory Results Test 07/15/24 05:45 07/14/24 13:00 07/14/24 10:08 07/14/24 05:02 White Blood Count 4.6 10^3/uL (4.4-10.8) Red Blood Count 2.70 10^6/uL (4.0-5.20) Hemoglobin 9.1 g/dL (12.2-16.2) Hematocrit 26.9 % (36.0-46.0) Mean Corpuscular Volume 99.7 fL (80.0-100.0) Mean Corpuscular Hemoglobin 33.8 pg (28.0-32.0) Mean Corpuscular Hemoglobin Concent 33.9 g/dL (32.0-36.0) Red Cell Distribution Width 17.3 % (11.8-14.3) Platelet Count 93 10^3/uL (140-450) Mean Platelet Volume 7.4 fL (6.9-10.8) Neutrophils (%) (Auto) 60.0 % (37.0-80.0) Lymphocytes (%) (Auto) 19.8 % (10.0-50.0) Monocytes (%) (Auto) 12.2 % (0.0-12.0) Eosinophils (%) (Auto) 7.0 % (0.0-7.0) Basophils (%) (Auto) 1.0 % (0.0-2.0) Neutrophils # (Auto) 2.8 10 ^3/uL (1.6-8.6) Lymphocytes # (Auto) 0.9 10 ^3/uL (0.4-5.4) Monocytes # (Auto) 0.6 10 ^3/uL (0-1.3) Eosinophils # (Auto) 0.3 10 ^3/uL (0-0.8) Basophils # (Auto) 0 10 ^3/uL (0-0.2) Nucleated Red Blood Cells 0.4 % Sodium Level 141 mmol/L (136-145) Potassium Level 4.6 mmol/L (3.5-5.1) Chloride Level 103 mmol/L (98-107) Carbon Dioxide Level 32 mmol/L (20-31) Anion Gap 6 (5-15) Blood Urea Nitrogen 12 mg/dL (9-23) Creatinine 1.22 mg/dL (0.550-1.02) Glomerular Filtration Rate Calc 43 mL/min (>90) BUN/Creatinine Ratio 9.8 (10.0-20.0) Serum Glucose 79 mg/dL (74-106) Calcium Level 8.3 mg/dL (8.7-10.4) Prothrombin Time 16.8 sec (9.3-11.8) Prothrombin Time INR 1.67 (0.9-1.15) Activated Partial Thromboplast Time 35.9 SEC (24.5-34.5) Body Fluid Source Ascities fluid Body Fluid pH 8.0 Body Fluid WBC (Manual) 175 CUMM (0-200) Body Fluid RBC (Manual) 107 CUMM (0-2000) Body Fluid Mononuclear Cells 88 % Body Fluid Polymorphonuclear Cells 12 % (0-25) Body Fluid Glucose 100 mg/dL (.) Body Fluid Total Protein 2.0 g/dL (.) Body Fluid Lactate Dehydrogenase 86 IU/L (.) Iron Level 96 ug/dL (50-170) Total Iron Binding Capacity 196 ug/dL (250-425) Percent Iron Saturation 49.0 % (15-50) Total Bilirubin 1.4 mg/dL (0.2-1.0) Direct Bilirubin 0.7 mg/dL (<0.3) Aspartate Amino Transferase (AST) 36 U/L (13-40) Alanine Aminotransferase (ALT) 10 U/L (7-40) Alkaline Phosphatase 97 U/L (46-116) Lactate Dehydrogenase 273 U/L (120-246) Total Protein 6.6 g/dL (5.7-8.2) Albumin 2.6 g/dL (3.2-4.8) Test 07/13/24 22:18 07/13/24 19:49 Lactic Acid Level 1.3 mmol/L (0.4-2.0) B-Type Natriuretic Peptide 747.78 pg/mL (0-100) Other Laboratory Tests 07/15/24 05:45 Brief Hx & Hospital Course: 84-year-old female with a known history of liver cirrhosis, congestive heart failure with systolic dysfunction, initially presented to the hospital with a bloody stools found to have rectal bleeding. Patient also has paroxysmal AFib currently on warfarin. Major Coumadin was held. Patient has a large ascites status post paracentesis was done. Patient has a permanent Bumex physician ruled out for multifocal pneumonia. Patient was being seen by Cardiology as well as GI. Initial plan was to do the colonoscopy. But patient currently stable to be discharged as per GI and outpatient follow up with them for outpatient colonoscopy. Patient and patient's understand verbalized understanding and agreeable to plan. Condition at Discharge: Stable Final Diagnosis/Problems List 84-year-old female with a known history of liver cirrhosis, congestive heart failure with systolic dysfunction, initially present with the hospital with a bloody stools found to have 1. Rectal bleeding 2. Paroxysmal AFib currently on warfarin 3. Large ascites status post paracentesis 4. Pericardial effusion 5. Pulmonary venous congestion/multifocal pneumonia 6. Acute kidney injury suspected secondary to vasomotor nephropathy Discharge Disposition: Home with [facility] Discharge Will this Physician continue t: No Discharge Instruct/Medications Diet: Cardiac 2g Na,low cholest Activity: No Restrictions, As Tolerated Follow Up/Referral: Follow up with the PCP in one week Follow up with GI doctor Jadyn Redman in one week Medications: Resume home medication including Coumadin Discharge Statement: "Patient was advised to return to the ER or call 911 if any headaches, dizziness, shortness of breath, chest pain, abdominal pain, bleeding, fevers, or worsening of medical condition. Patient was counseled about treatment plan, medications, possible side effects, patientverbalized understanding. All questions were answered to the best of my ability. This discharge took greater then 30 minutes in planning, reviewing documentation, counseling the patient, and discussing with other team members." ASSESSMENT ASSESSMENT Assessment 84-year-old female with a known history of liver cirrhosis, congestive heart failure with systolic dysfunction, initially present with the hospital with a bloody stools found to have 1. Rectal bleeding 2. Paroxysmal AFib currently on warfarin 3. Large ascites status post paracentesis 4. Pericardial effusion 5. Pulmonary venous congestion/multifocal pneumonia 6. Acute kidney injury suspected secondary to vasomotor nephropathy Date of Service: Jul 15, 2024 Billing Provider: ANTONY RUSSELL MD Common Visit Codes: NOT BILLABLE ANTONY RUSSELL MD Jul 15, 2024 16:31
--- NOTE | 2024-07-15 23:07 | DVHINCON2 ---
Date of service: Jul 15, 2024 Referring Physician Yanely Yancey NP Reason for Consultation Acute hypoxic respiratory failure History of Present Illness An 84 year old woman with PMHx of HTN, HLD, CVA, Afib, CHF, hypothyroid, liver cirrhosis, gallstones, unspecified kidney disease who presented to ED on 07/13/24 with c/o rectal bleeding, onset day prior to presentation. Patient stated she woke up from a nap, went to the restroom when she had diarrhea and noticed blood in stool. Blood was bright red and bowel movement was water-like. Pt has loose stools x 3-4 months. Patient also c/o generalized edema. She is on Coumadin. Patient was admitted for further care, and pulmonary consultation is requested for evaluation and management of acute hypoxic respiratory failure. Review of Systems: 14-point review of systems negative unless otherwise noted above. Past Medical History: AFIB, CHF, hypertension, hyperlipidemia, CKD, Hypothyroidism, liver cirrhosis, gallstones, MVP Past Surgical History: None Medications: Reviewed. Allergies: Codeine, oxycodone, Sulfamethoxazole. Family History: Alcoholism Cardiovascular disease Cerebrovascular accident Diabetes mellitus Hypertension. Social History: Nonsmoker. No alcohol or illicit drug use. Family History: Alcoholism G8 MOTHER Cardiovascular disease G8 MOTHER Cerebrovascular accident (CVA) G8 FATHER Diabetes mellitus G8 MOTHER Hypertension G8 MOTHER G8 FATHER Allergies: Coded Allergies: Codeine (Verified Allergy, Severe, HALLUCINATION, 03/17/23) Oxycodone (Verified Allergy, Severe, NAUSEA, LIGHT HEADEDNESS, 03/17/23) Sulfamethoxazole (Verified Allergy, Severe, ILLUSION, 03/17/23) Home Meds Active Scripts Pantoprazole Sodium Sesquihydr (Pantoprazole Sodium) 40 Mg Tab, 40 MG PO DAILY@0600, #60 TAB Prov:ANTONY RUSSELL MD 02/03/24 Reported Medications Ferrous Sulfate (Gnp Iron) 325 Mg Tab, 1 TAB PO DAILY for 30 Days, #30 07/14/24 Potassium Chloride (Potassium Chloride ER) 20 Meq Tab, 2 TAB PO BID for 90 Days, #360 07/14/24 Furosemide (Furosemide) 80 Mg Tab, 1 TAB PO BID for 90 Days, #180 07/14/24 Alprazolam (Alprazolam) 0.25 Mg Tab, 1 TAB PO BID PRN for PAIN SCALE 7 THRU 10 for 15 Days, #30 07/14/24 Cholecalciferol (VITAMIN D3) 1,000 Unit Chw, 1000 UNIT PO DAILY, TAB.CHEW 08/21/23 Thiamine Hcl (VITAMIN B-1) 100 Mg Tb, 100 MG PO DAILY, TAB 08/21/23 Magnesium Oxide (MAGNESIUM OXIDE) 400 Mg Tab, 1 TAB PO DAILY, #30 TAB 5 Refills 08/21/23 Albuterol Sulfate (Albuterol Sulfate Hfa) 108 Mcg/Act Aer, 2 PUFF INH QID PRN for SHORTNESS OF BREATH for 25 Days, #8.5 03/17/23 Levothyroxine Sodium (Levothyroxine Sodium) 88 Mcg Tab, 1 TAB PO QAM for 90 Days, #90 03/17/23 Simvastatin (Simvastatin) 10 Mg Tab, 1 TAB PO DAILY for 71 Days, #71 03/17/23 Metoprolol Tartrate (Metoprolol Tartrate) 25 Mg Tab, 1 TAB PO DAILY for 90 Days, #180 03/17/23 Discontinued Reported Medications Alprazolam (Alprazolam) 0.5 Mg Tab, 1 TAB PO HS 03/17/23 Vital Signs Vital Signs Date Time Temp Pulse Resp B/P (MAP) Pulse Ox O2 Delivery O2 Flow Rate FiO2 07/15/24 18:16 128/64 07/15/24 17:25 98.3 51 19 94 07/15/24 13:16 Nasal Cannula 2.0 07/15/24 13:16 28 Physical Exam Gen.: Patient lying in bed in no apparent distress. On supplemental oxygen. Head: Normocephalic, atraumatic. Eyes: EOMI/PERRLA. Ears: Normal hearing. Normal anatomy. Neck/trachea: Trachea midline, supple. Nose: Normal external anatomy. Mouth: Moist mucous membranes. Chest: Decreased air entry bilaterally. No wheezing or rhonchi. Cardiovascular: Positive S1, positive S2. Regular rate and rhythm. Abdomen: Positive bowel sounds in all 4 quadrants. Soft, non-tender, non- distended. : Deferred. Rectal: Deferred. Skin: Warm, dry. Intact. Extremities: 2+ radial pulses bilaterally. No lower extremity edema. Neuro: Awake, alert, oriented x3. No gross motor or sensory deficits. Cranial nerves II through XII intact. Gait not assessed. Labs/Diagnostic Data Labs Test 07/15/24 05:45 07/14/24 13:00 07/14/24 10:08 07/14/24 05:02 Range/Units White Blood Count 4.6 4.4-10.8 10^3/uL Red Blood Count 2.70 L 4.0-5.20 10^6/uL Hemoglobin 9.1 L 12.2-16.2 g/dL Hematocrit 26.9 L 36.0-46.0 % Mean Corpuscular Volume 99.7 80.0-100.0 fL Mean Corpuscular Hemoglobin 33.8 H 28.0-32.0 pg Mean Corpuscular Hemoglobin Concent 33.9 32.0-36.0 g/dL Red Cell Distribution Width 17.3 H 11.8-14.3 % Platelet Count 93 L 140-450 10^3/uL Mean Platelet Volume 7.4 6.9-10.8 fL Neutrophils (%) (Auto) 60.0 37.0-80.0 % Lymphocytes (%) (Auto) 19.8 10.0-50.0 % Monocytes (%) (Auto) 12.2 H 0.0-12.0 % Eosinophils (%) (Auto) 7.0 0.0-7.0 % Basophils (%) (Auto) 1.0 0.0-2.0 % Neutrophils # (Auto) 2.8 1.6-8.6 10 ^3/uL Lymphocytes # (Auto) 0.9 0.4-5.4 10 ^3/uL Monocytes # (Auto) 0.6 0-1.3 10 ^3/uL Eosinophils # (Auto) 0.3 0-0.8 10 ^3/uL Basophils # (Auto) 0 0-0.2 10 ^3/uL Nucleated Red Blood Cells 0.4 % Sodium Level 141 136-145 mmol/L Potassium Level 4.6 3.5-5.1 mmol/L Chloride Level 103 98-107 mmol/L Carbon Dioxide Level 32 H 20-31 mmol/L Anion Gap 6 5-15 Blood Urea Nitrogen 12 9-23 mg/dL Creatinine 1.22 H 0.550-1.02 mg/dL Glomerular Filtration Rate Calc 43 >90 mL/min BUN/Creatinine Ratio 9.8 L 10.0-20.0 Serum Glucose 79 74-106 mg/dL Calcium Level 8.3 L 8.7-10.4 mg/dL Prothrombin Time 16.8 H 9.3-11.8 sec Prothrombin Time INR 1.67 H 0.9-1.15 Activated Partial Thromboplast Time 35.9 H 24.5-34.5 SEC Body Fluid Source Ascities fluid Body Fluid pH 8.0 Body Fluid WBC (Manual) 175 0-200 CUMM Body Fluid RBC (Manual) 107 0-2000 CUMM Body Fluid Mononuclear Cells 88 % Body Fluid Polymorphonuclear Cells 12 0-25 % Body Fluid Glucose 100 . mg/dL Body Fluid Total Protein 2.0 . g/dL Body Fluid Lactate Dehydrogenase 86 . IU/L Iron Level 96 50-170 ug/dL Total Iron Binding Capacity 196 L 250-425 ug/dL Percent Iron Saturation 49.0 15-50 % Total Bilirubin 1.4 H 0.2-1.0 mg/dL Direct Bilirubin 0.7 H <0.3 mg/dL Aspartate Amino Transferase (AST) 36 13-40 U/L Alanine Aminotransferase (ALT) 10 7-40 U/L Alkaline Phosphatase 97 46-116 U/L Lactate Dehydrogenase 273 H 120-246 U/L Total Protein 6.6 5.7-8.2 g/dL Albumin 2.6 L 3.2-4.8 g/dL Test 07/13/24 22:18 07/13/24 19:49 Range/Units Lactic Acid Level 1.3 0.4-2.0 mmol/L B-Type Natriuretic Peptide 747.78 0-100 pg/mL Microbiology Date/Time Source Procedure Growth Status 07/14/24 10:08 Ascities Fluid Gram Stain - Final Resulted 07/14/24 10:08 Ascities Fluid Body Fluid Culture - Preliminary Resulted 07/13/24 22:18 Blood Blood Culture - Preliminary NO GROWTH AFTER 48 HOURS OF INCUBATION. Resulted Assessment Impression: Acute hypoxic respiratory failure Dependence on supplemental oxygen Acute on chronic CHF exacerbation GI hemorrhage Atelectasis Plan: Supplemental oxygen Titrate to keep O2 sats above 92%. Continue bronchodilators. Continue antibiotics Incentive spirometry Monitor hemoglobin Follow up GI recs Diurese to euvolemia Monitor renal function. Monitor electrolytes. Supplement as necessary. Monitor ins and outs. Patient is stable for discharge from the pulmonary standpoint. Follow up in 2 weeks in Pulmonary Clinic. DVT prophylaxis. Prognosis: Poor given patient's multiple co-morbidities. Rest of plan per hospitalist and other consultants. A total of 76 minutes of clinical care time was spent reviewing the patient record, examining the patient, making a diagnostic and therapeutic plan, discussing this plan with the medical personnel, following up on diagnostic studies and following the patient for clinical stability excluding any and all procedures. At least 50% of this time was spent in direct, [id number] contact. Thank you, JEREMIAH Yancey, for allowing me to participate in this patient's care. Further recommendations will depend on the patient's clinical course. Please do not hesitate to contact me if you have any questions or concerns. This medical document was created using an electronic medical record system with [employer] computerized dictation system. Although these documentations are being carefully reviewed, there may still be some phonetic and typographical changes. The errors are purely typographical, due to imperfection on the software program, and do not reflect any compromise in the patient's medical care. Plan discussed with: Patient, Other (STEPHENIE Coughlin/JEREMIAH Yancey/) RODRIGO HARTLEY MD Jul 15, 2024 23:07
== END 2024-07-15 19:17 | disposition home health service (06) | DRG 432 ==
LOC: ER 19:20 → EDBD 19:20 → TELE 23:06 → TELE-WESTW 07-14 10:49
PROVIDERS: ADMIT Nurse Practitioner Family; ATTEND Nurse Practitioner Family
PROC: 0W9G3ZZ Drainage of Peritoneal Cavity, Percutaneous Approach (ICD-10-PCS; principal; 2024-07-14)
DX: K74.60 Unspecified cirrhosis of liver (principal); I50.23 Acute on chronic systolic (congestive) heart failure; J18.9 Pneumonia, unspecified organism; N17.0 Acute kidney failure with tubular necrosis; J96.01 Acute respiratory failure with hypoxia; R18.8 Other ascites; I31.39 Other pericardial effusion (noninflammatory); I13.0 Hypertensive heart and chronic kidney disease with heart failure and stage 1 through stage 4 chronic kidney disease, or unspecified chronic kidney disease; J98.11 Atelectasis; E78.5 Hyperlipidemia, unspecified; E03.9 Hypothyroidism, unspecified; N18.9 Chronic kidney disease, unspecified; I07.1 Rheumatic tricuspid insufficiency; K52.9 Noninfective gastroenteritis and colitis, unspecified; I48.0 Paroxysmal atrial fibrillation; Z86.73 Personal history of transient ischemic attack (TIA), and cerebral infarction without residual deficits; Z88.1 Allergy status to other antibiotic agents; Z88.3 Allergy status to other anti-infective agents; Z88.5 Allergy status to narcotic agent; Z90.710 Acquired absence of both cervix and uterus; Z90.49 Acquired absence of other specified parts of digestive tract; Z82.49 Family history of ischemic heart disease and other diseases of the circulatory system; Z83.3 Family history of diabetes mellitus; Z82.3 Family history of stroke; Z87.891 Personal history of nicotine dependence; Z81.1 Family history of alcohol abuse and dependence; Z99.81 Dependence on supplemental oxygen; Z79.01 Long term (current) use of anticoagulants
CPT/HCPCS: 36415; 49083; 71045; 74177; 76705; 76942; 80048; 80076; 83540; 83550; 83605; 83615; 83880; 83986; 85014; 85018; 85025; 85610; 85730; 87040; 87205; 89051; 93005; 93306; 94640; 97110; 97116; 97163; 97530; 99291; G0378; J0692; J2405; J2470

== ENCOUNTER 2024-10-05 10:40 | Inpatient (IN) | payer OTHER, MEDICAID ==
[~2024-10-05] VITALS: Ht 157.5 cm; Wt 62.7 kg
[~2024-10-05 10:40] MED LIST changes: -ALPR0.5T7 PO; -CIPR-173 PO; -FURO1TAB31 PO; +LEVO100T8 PO; -METO5TAB2 PO; -METR-344 PO; -POTA-228 PO; +SPIR25TA8 PO
--- NOTE | 2024-10-05 13:04 | DVH ---
EXAM: XY CHEST PORTABLE Indication: sob Technique: Single frontal view of the chest was obtained Comparison: XY CHEST PORTABLE on DOS: 07/13/24, XY CHEST PORTABLE on DOS: 03/01/24, XY CHEST PORTABLE o n DOS: 02/02/24, XY CHEST PORTABLE on DOS: 09/11/23, XY CHEST PORTABLE on DOS: 08/20/23 FINDINGS: Lines and Tubes: None Lungs: Pulmonary vascular congestion. Pleura: No effusion. No pneumothorax. Cardiomediastinal contours: Cardiomegaly. Atherosclerotic vascular calcifications of the thoracic ao rta are noted. Bones: No acute osseous abnormality. IMPRESSION: Cardiomegaly with pulmonary vascular congestion.
[2024-10-05 13:32] LABS: Basophils # (auto) 0 10 ^3/uL (0-0.2); Basophils % (auto) 0.8 % (0.0-2.0); Eosinophils # (auto) 0.2 10 ^3/uL (0-0.8); Eosinophils % (auto) 3.8 % (0.0-7.0); Hematocrit 34.5 % (36.0-46.0); Hemoglobin 11.4 g/dL (12.2-16.2); Lymphocytes # (auto) 0.7 10 ^3/uL (0.4-5.4); Lymphocytes % (auto) 17.7 % (10.0-50.0); Mean Corpuscular Hemoglobin 31.8 pg (28.0-32.0); Mean Corpuscular Volume 96.4 fL (80.0-100.0); Monocytes # (auto) 0.4 10 ^3/uL (0-1.3); Monocytes % (auto) 8.9 % (0.0-12.0); Neutrophils # (auto) 2.7 10 ^3/uL (1.6-8.6); Neutrophils % (auto) 68.8 % (37.0-80.0); Nucleated Red Blood Cells % 0.1 %; Platelet Count (auto) 134 10^3/uL (140-450); Red Blood Cells 3.58 10^6/uL (4.0-5.20); Red Cell Distribution Width 15.6 % (11.8-14.3)
[2024-10-05 13:45] LABS: INR 1.77 (0.9-1.15); Prothrombin Time 17.7 sec (9.3-11.8)
[2024-10-05 13:47] LABS: Alanine Aminotransferase 20 U/L (7-40); Anion Gap 5 (5-15); BUN/Creatinine Ratio 21.9 (10.0-20.0); Carbon Dioxide 27 mmol/L (20-31); Chloride 101 mmol/L (98-107); Potassium 4.4 mmol/L (3.5-5.1); Total Protein 6.2 g/dL (5.7-8.2)
[2024-10-05 13:48] LABS: Bilirubin, Total 0.6 mg/dL (0.2-1.0)
[2024-10-05 13:50] LABS: Blood Urea Nitrogen 28 mg/dL (9-23); Glucose 175 mg/dL (74-106); Sodium 133 mmol/L (136-145)
[2024-10-05 13:51] LABS: Albumin 2.5 g/dL (3.2-4.8); Alkaline Phosphatase 158 U/L (46-116); Aspartate Aminotransferase 47 U/L (13-40); Calcium 8.6 mg/dL (8.7-10.4)
--- NOTE | 2024-10-05 14:32 | ED.PDOC ---
History of Present Illness HPI Comments 84F BIBA w/ prior Hx of CHF, AFIB, which all may be associated to the c/c of SOB. Pt reports on having the SOB before and also it starting today, w/ cough and lightheadedness. Pt states that for 1 week she has "not been feeling good" PMHx of HTN, Liver, Thyroid, Cirrhosis of liver, CVA, Gallstones and High L ipids. SHx of Appendectomy and Hysterectomy. Denies chills, fever, N/V/D, SOB, CP No other associated symptoms, modifiers, recent injuries or sick contacts present at this time. Chief Complaint: Shortness of Breath Time Seen by MD: 12:10 Primary Care Provider: ABRAHAN Reviewed Notes: Nurses Notes, Geotechnical Laboratory Technician Notes, Medications, Allergies Allergies: Coded Allergies: Codeine (Verified Allergy, Severe, HALLUCINATION, 03/17/23) Oxycodone (Verified Allergy, Severe, NAUSEA, LIGHT HEADEDNESS, 03/17/23) Sulfamethoxazole (Verified Allergy, Severe, ILLUSION, 03/17/23) Home Meds Active Scripts Pantoprazole Sodium Sesquihydr (Pantoprazole Sodium) 40 Mg Tab, 40 MG PO DAILY@0600, #60 TAB Prov:ANTONY RUSSELL MD 02/03/24 Reported Medications Ferrous Sulfate (Gnp Iron) 325 Mg Tab, 1 TAB PO DAILY for 30 Days, #30 07/14/24 Potassium Chloride (Potassium Chloride ER) 20 Meq Tab, 2 TAB PO BID for 90 Days, #360 07/14/24 Furosemide (Furosemide) 80 Mg Tab, 1 TAB PO BID for 90 Days, #180 07/14/24 Alprazolam (Alprazolam) 0.25 Mg Tab, 1 TAB PO BID PRN for PAIN SCALE 7 THRU 10 for 15 Days, #30 07/14/24 Cholecalciferol (VITAMIN D3) 1,000 Unit Chw, 1000 UNIT PO DAILY, TAB.CHEW 08/21/23 Thiamine Hcl (VITAMIN B-1) 100 Mg Tb, 100 MG PO DAILY, TAB 08/21/23 Magnesium Oxide (MAGNESIUM OXIDE) 400 Mg Tab, 1 TAB PO DAILY, #30 TAB 5 Refills 08/21/23 Albuterol Sulfate (Albuterol Sulfate Hfa) 108 Mcg/Act Aer, 2 PUFF INH QID PRN for SHORTNESS OF BREATH for 25 Days, #8.5 03/17/23 Levothyroxine Sodium (Levothyroxine Sodium) 88 Mcg Tab, 1 TAB PO QAM for 90 Days, #90 03/17/23 Simvastatin (Simvastatin) 10 Mg Tab, 1 TAB PO DAILY for 71 Days, #71 03/17/23 Metoprolol Tartrate (Metoprolol Tartrate) 25 Mg Tab, 1 TAB PO DAILY for 90 Days, #180 03/17/23 Information Source: Patient Mode of Arrival: EMS Severity: Moderate Timing: Hours Duration: Since onset, Hours Prehospital treatment: None Past Medical History PAST MEDICAL HISTORY: AFIB, CHF, CVA, Gallstones, High Lipids, HTN, Liver, Thyroid Surgical History: Appendectomy, Hysterectomy ARCHITECTURAL DRAFTSPERSON History: No Pertinent ARCHITECTURAL DRAFTSPERSON History Family History Family History: Reviewed,noncontributory to illness, Unknown Social History Smoker: Non-Smoker Alcohol: Denies ETOH Use Drugs: Denies Drug Use Lives In: Home Constitutional: denies: chills, diaphoresis, fatigue, fever, malaise, sweats, weakness, others EENTM: denies: blurred vision, double vision, ear bleeding, ear discharge, ear drainage, ear pain, ear ringing, eye pain, eye redness, hearing loss, mouth pain, mouth swelling, nasal discharge, nose bleeding, nose congestion, nose pain, photophobia, tearing, throat pain, throat swelling, voice changes, others Respiratory: reports: cough, shortness of breath; denies: hemoptysis, orthopnea, SOB at rest, SOB with excertion, stridor, wheezing, others Cardiovascular: reports: lightheadedness; denies: chest pain, dizzy spells, diaphoresis, Dyspnea on exertion, edema, irregular heart beat, left arm pain, palpitations, PND, syncope, others Gastrointestinal: denies: abdomen distended, abdominal pain, blood streaked bowels, constipated, diarrhea, dysphagia, difficulty swallowing, hematemesis, melena, nausea, poor appetite, poor fluid intake, rectal bleeding, rectal pain, vomiting, others Genitourinary: denies: abnormal vagina bleeding, burning, dyspareunia, dysuria, flank pain, frequency, hematuria, incontinence, pain, , vagina discharge, urgency, others Neurological: denies: dizziness, fainting, headache, left sided numbness, left sided weakness, numbness, paresthesia, pre-existing deficit, right sided numbness, right sided weakness, seizure, speech problems, tingling, tremors, weakness, others Musculoskeletal: denies: back pain, gout, joint pain, joint swelling, muscle pain, muscle stiffness, neck pain, others Integumetry: denies: bruises, change in color, change in hair/nails, dryness, laceration, lesions, lumps, rash, wounds, others Allergic/Immunocompromised: denies: Difficulty Healing, Frequent Infections, Hives, Itching, others Hematologic/Lymphatic: denies: anemia, blood clots, easy bleeding, easy bruising, swollen glands, others Endocrine: denies: excessive hunger, excessive sweating, excessive thirst, excessive urination, flushing, intolerance to cold, intolerance to heat, unexplained weight gain, unexplained weight loss, others Psychiatric: denies: anxiety, bipolar disorder, depression, hopeless, panic disorder, schizophrenia, sleepless, suicidal, others All Other Systems: Reviewed and Negative Physical Exam Exam Comments 3+ Pedal Edema, Irregular Heart Beat General Appearance: No Apparent Distress, Normal HEENT: Normal ENT Inspection, Pharynx Normal, TMs Normal Neck: Full Range of Motion, Non-Tender, Normal, Normal Inspection Respiratory: Chest Non-Tender, Lungs Clear, No Accessory Muscle Use, No Respiratory Distress, Normal Breath Sounds Cardiovascular: No Edema, No JVD, No Murmur, No Gallop, Normal Peripheral Pulses, Regular Rate/Rhythm Breast Exam: Deferred Gastrointestinal: No Organomegaly, Non Tender, No Pulsatile Mass, Normal Bowel Sounds, Soft Genitalia: Deferred Pelvic: Deferred Rectal: Deferred Extremities: No calf tenderness, Normal capillary refill, Normal inspection, Normal range of motion, Non-tender, No pedal edema Musculoskeletal : Apperance: Normal Neurologic: Alert, lip cutter and scorer II-XII nml as Tested, No Motor Deficits, Normal Affect, Normal Mood, No Sensory Deficits Cerebellar Function: Normal Reflexes: Normal Skin: Dry, Normal Color, Warm Lymphatic: No Adenopathy Was a procedure done? Was a procedure done?: No Differential Dx Considerations may include: chf, renal failure, pleural effusion, pneumonia, acs, pe, ascites, anxiety X-Ray, Labs, Meds, VS Vital Signs Date Time Temp Pulse Resp B/P (MAP) Pulse Ox O2 Delivery O2 Flow Rate FiO2 10/05/24 11:27 98.0 68 18 140/75 (96) 95 98.0 10/05/24 10:55 70 Lab Test 10/05/24 14:07 10/05/24 12:46 Range/Units Troponin I High Sensitivity 13 13 </=34 ng/L White Blood Count 4.0 L 4.4-10.8 10^3/uL Red Blood Count 3.58 L 4.0-5.20 10^6/uL Hemoglobin 11.4 L 12.2-16.2 g/dL Hematocrit 34.5 L 36.0-46.0 % Mean Corpuscular Volume 96.4 80.0-100.0 fL Mean Corpuscular Hemoglobin 31.8 28.0-32.0 pg Mean Corpuscular Hemoglobin Concent 33.0 32.0-36.0 g/dL Red Cell Distribution Width 15.6 H 11.8-14.3 % Platelet Count 134 L 140-450 10^3/uL Mean Platelet Volume 7.6 6.9-10.8 fL Neutrophils (%) (Auto) 68.8 37.0-80.0 % Lymphocytes (%) (Auto) 17.7 10.0-50.0 % Monocytes (%) (Auto) 8.9 0.0-12.0 % Eosinophils (%) (Auto) 3.8 0.0-7.0 % Basophils (%) (Auto) 0.8 0.0-2.0 % Neutrophils # (Auto) 2.7 1.6-8.6 10 ^3/uL Lymphocytes # (Auto) 0.7 0.4-5.4 10 ^3/uL Monocytes # (Auto) 0.4 0-1.3 10 ^3/uL Eosinophils # (Auto) 0.2 0-0.8 10 ^3/uL Basophils # (Auto) 0 0-0.2 10 ^3/uL Nucleated Red Blood Cells 0.1 % Prothrombin Time 17.7 H 9.3-11.8 sec Prothrombin Time INR 1.77 H 0.9-1.15 Sodium Level 133 L 136-145 mmol/L Potassium Level 4.4 3.5-5.1 mmol/L Chloride Level 101 98-107 mmol/L Carbon Dioxide Level 27 20-31 mmol/L Anion Gap 5 5-15 Blood Urea Nitrogen 28 H 9-23 mg/dL Creatinine 1.28 H 0.550-1.02 mg/dL Glomerular Filtration Rate Calc 41 >90 mL/min BUN/Creatinine Ratio 21.9 H 10.0-20.0 Serum Glucose 175 H 74-106 mg/dL Calcium Level 8.6 L 8.7-10.4 mg/dL Total Bilirubin 0.6 0.2-1.0 mg/dL Aspartate Amino Transferase (AST) 47 H 13-40 U/L Alanine Aminotransferase (ALT) 20 7-40 U/L Alkaline Phosphatase 158 H 46-116 U/L Total Protein 6.2 5.7-8.2 g/dL Albumin 2.5 L 3.2-4.8 g/dL Time of 1ST Reevaluation: 12:40 Reevaluation 1ST: Unchanged Patient Education/Counseling: Diagnosis, Treatment, Prognosis Family Education/Counseling: No Family Present Additional Information The following tests were ordered, and results were reviewed by me: LAB, XY, EKG Additional Information was gathered from interviewing the following independent historians: 07/13/24 I reviewed and agreed with the following test results read by other providers:XY I discussed treatment and results with medical personnel and: Patient Comprehensive systems review obtained and negative except for what is stated in the HPI. Departure 1 Departure Time of Disposition: 18:00 Impression: Primary Impression: Acute exacerbation of CHF (congestive heart failure) Qualified Codes: I50.23 - Acute on chronic systolic (congestive) heart failure Disposition: ADMITTED INPATIENT Admit to: Tele Condition: Serious Discharged With: Self Critical Care Note Critical Care Time?: Yes (55 min-critical care time only) Critical care comment: due to concerns for patient's condition deteriorating, the care required my highest level of attention and readiness to intervene. i assessed the patient's condition, ordered the proper tests and treatments, reassessed for response and reviewed the results. i communicated with medical personnel and formulated a plan of care. total critical care time does not include any procedures Stability Stability form required: No I personally scribed for CHRISTY GUILLAUME MD ([email or web address]) on 10/05/24 at 14:32. Electronically submitted by Lucho Rios ([email or web address]). CHRISTY GUILLAUME MD Oct 05, 2024 14:32
[2024-10-05] MEDS ORDERED: ACETAMINOPHEN 325 MG TAB PO PRN (15:15)
[2024-10-05] MEDS ORDERED: ONDANSETRON HCL 4 MG/2 ML VIAL IV PRN (15:15)
[2024-10-05] MEDS ORDERED: NITROGLYCERIN 0.4 MG SL TAB SL PRN (15:15)
[2024-10-05] MEDS ORDERED: MORPHINE SULFATE INJ 2 MG/ml SYRG IV PRN ×2 (15:15)
[2024-10-05] MEDS ORDERED: HYDROcodone-ACET 5/325MG TAB PO PRN (15:15)
--- NOTE | 2024-10-05 15:25 | DVHHP2 ---
History of Present Illness Reason for Visit: Increasing shortness a breath History of Present Illness 84-year-old female with a known history of end-stage liver disease, recurrent ascites status post paracentesis weekly to 10 days, severe tricuspid regurgitation, previous history of GI bleed currently on Protonix, esophageal varices, hypertension, hypothyroidism, chronic AFib currently not on any anticoagulation presented to the hospital with the increasing shortness a breath found to have possible acute on chronic congestive heart failure exacerbation. Patient's at bedside who is under rate and the story to me that she has a severe valvular insufficiency currently on shortness says has not authorized higher level of care as an outpatient. Patient denies any chest pain but does complaining of leg swelling and increasing shortness a breath on minimal exertion. Cardiovascular: CHF, HTN, pulmonary hypertension GI: GERD, Peptic Ulcer disease Hepatobiliary: Cirrhosis Renal/: Chronic renal insuff Endocrine: Hypothyroidism Past Surgical History: Appendectomy, Hysterectomy Family History: None Smoke: No ALCOHOL: none Review of Systems Review of Systems Twelve review of system are negative besides mentioned above. Allergies: Coded Allergies: Codeine (Verified Allergy, Severe, HALLUCINATION, 03/17/23) Oxycodone (Verified Allergy, Severe, NAUSEA, LIGHT HEADEDNESS, 03/17/23) Sulfamethoxazole (Verified Allergy, Severe, ILLUSION, 03/17/23) Exam Vital Signs Vital Signs Date Time Temp Pulse Resp B/P (MAP) Pulse Ox O2 Delivery O2 Flow Rate FiO2 10/05/24 11:27 98.0 68 18 140/75 (96) 95 98.0 Exam HEENT pupils are reactive Neck is supple CV is S1-S2 regular rate and rhythm Respiratory diminished breath sounds bases at lung bases GI positive bowel sound, minimal ascites Extremity 2+ pitting edema HCC CODERS no motor deficit Labs/Xrays Labs Test 10/05/24 14:07 10/05/24 12:46 Range/Units Troponin I High Sensitivity 13 </=34 ng/L White Blood Count 4.0 L 4.4-10.8 10^3/uL Red Blood Count 3.58 L 4.0-5.20 10^6/uL Hemoglobin 11.4 L 12.2-16.2 g/dL Hematocrit 34.5 L 36.0-46.0 % Mean Corpuscular Volume 96.4 80.0-100.0 fL Mean Corpuscular Hemoglobin 31.8 28.0-32.0 pg Mean Corpuscular Hemoglobin Concent 33.0 32.0-36.0 g/dL Red Cell Distribution Width 15.6 H 11.8-14.3 % Platelet Count 134 L 140-450 10^3/uL Mean Platelet Volume 7.6 6.9-10.8 fL Neutrophils (%) (Auto) 68.8 37.0-80.0 % Lymphocytes (%) (Auto) 17.7 10.0-50.0 % Monocytes (%) (Auto) 8.9 0.0-12.0 % Eosinophils (%) (Auto) 3.8 0.0-7.0 % Basophils (%) (Auto) 0.8 0.0-2.0 % Neutrophils # (Auto) 2.7 1.6-8.6 10 ^3/uL Lymphocytes # (Auto) 0.7 0.4-5.4 10 ^3/uL Monocytes # (Auto) 0.4 0-1.3 10 ^3/uL Eosinophils # (Auto) 0.2 0-0.8 10 ^3/uL Basophils # (Auto) 0 0-0.2 10 ^3/uL Nucleated Red Blood Cells 0.1 % Prothrombin Time 17.7 H 9.3-11.8 sec Prothrombin Time INR 1.77 H 0.9-1.15 Sodium Level 133 L 136-145 mmol/L Potassium Level 4.4 3.5-5.1 mmol/L Chloride Level 101 98-107 mmol/L Carbon Dioxide Level 27 20-31 mmol/L Anion Gap 5 5-15 Blood Urea Nitrogen 28 H 9-23 mg/dL Creatinine 1.28 H 0.550-1.02 mg/dL Glomerular Filtration Rate Calc 41 >90 mL/min BUN/Creatinine Ratio 21.9 H 10.0-20.0 Serum Glucose 175 H 74-106 mg/dL Calcium Level 8.6 L 8.7-10.4 mg/dL Total Bilirubin 0.6 0.2-1.0 mg/dL Aspartate Amino Transferase (AST) 47 H 13-40 U/L Alanine Aminotransferase (ALT) 20 7-40 U/L Alkaline Phosphatase 158 H 46-116 U/L Total Protein 6.2 5.7-8.2 g/dL Albumin 2.5 L 3.2-4.8 g/dL Assessment/Plan Assessment/Plan 84-year-old female with a known history of end-stage liver disease, recurrent ascites status post paracentesis, severe tricuspid regurgitation, hypertension, hypothyroidism, previous history of GI bleed with a esophageal varices presented to the hospital with the increasing shortness a breath found to have 1. Dyspnea on exertion 2.Acute on chronic congestive heart failure exacerbation with systolic dysfunction 3. Severe tricuspid regurgitation 4. Bilateral lower extremity swelling 5. Recurrent ascites 6. End-stage liver disease 7. Hypothyroidism 8. Hypoalbuminemia -admit to telemetry, cardiology consultation, IV diuretics, resume home medic ations Plan discussed with: Patient, Spouse My Orders Orders - ANTONY RUSSELL MD Procedure Category Date Status Time Admit ADMIT 10/05/24 Transmitted 15:13 Code Status CODE 10/05/24 Transmitted 15:13 2 Gm Sodium Diet DIET 10/05/24 Transmitted Dinner Hydrocodone-Acet PHA 10/05/24 Transmitted 5/325mg Tab ([place] 15:15 Ondansetron Hcl PHA 10/05/24 Transmitted (Zofran) 15:15 Complete Blood Count LAB 10/06/24 Verified 04:00 Comprehensive LAB 10/06/24 Verified Metabolic Panel 04:00 Pt Request For Service PT 10/05/24 Transmitted 15:13 Condition: Fair CHANTE 10/05/24 In Process 15:13 Acetaminophen Tablet PHA 10/05/24 Transmitted (Tylenol Tablet) 15:15 Morphine Sulfate PHA 10/05/24 Transmitted Injection 15:15 Nitroglycerin PHA 10/05/24 Transmitted Sublingual (Ntrostat 15:15 Morphine Sulfate PHA 10/05/24 Transmitted Injection 15:15 Stat Ekg For Chest CHANTE 10/05/24 In Process Pain 15:13 Notify Md Of Changes CHANTE 10/05/24 In Process From Base 15:13 Archivist [employer] History For CHANTE 10/05/24 In Process 24 Hours 15:13 Emergency Dysrhythmia CHANTE 10/05/24 In Process Protocol 15:13 Rhythm Strips Once CHANTE 10/05/24 In Process Every Shift 15:13 Oxygen By Nasal RT 10/05/24 Transmitted Cannula 15:13 Furosemide Injection PHA 10/05/24 Transmitted (Lasix Injection) 15:15 * Cardiology Consult CONS 10/05/24 Transmitted 15:13 Alprazolam Tablet PHA 10/05/24 Transmitted (Xanax Tablet) 15:15 Levothyroxine Tablet PHA 10/06/24 Transmitted (Synthroid Tablet) 07:00 Metoprolol Tartrate PHA 10/06/24 Transmitted Tablet (Lopressor Ta 10:00 Pantoprazole Tablet PHA 10/06/24 Transmitted (Protonix Tablet) 06:00 Thiamine Tab PHA 10/06/24 Transmitted 10:00 (Nf) Cholecalciferol PHA 10/06/24 Transmitted (Vitamin D3) 10:00 (Nf) Ferrous Sulfate PHA 10/06/24 Transmitted (Gnp Iron) 10:00 (Nf) Magnesium Oxide PHA 10/06/24 Transmitted 10:00 (Nf) Simvastatin PHA 10/06/24 Transmitted 10:00 Date of Service: Oct 05, 2024 Billing Provider: ANTONY RUSSELL MD Common Visit Codes: NOT BILLABLE ANTONY RUSSLEL MD Oct 05, 2024 15:25
[2024-10-05 16:42] VITALS: PULSE 66; RESP 18; O2SAT 100
[2024-10-05] MEDS: FUROSEMIDE 40 MG/4 ML VIAL IV SCH (16:46)
--- NOTE | 2024-10-05 18:52 | ECG ---
[facility] Test Date: 2024-10-05 Test Time: 10:52:24 Pat Name: BETY HART Department: ED Room: 0279T Gender: F Manager Body: RICKEY : [id number] Requested By: KARISHMA RENEE Order Number: [id number] Reading MD: Jack Houston Measurements Intervals [place] Rate: 70 P: 0 MT: 0 QRS: -3 QRSD: 132 T: -21 QT: 404 QTc: 436 Interpretive Statements Atrial fibrillation Right bundle branch block Electronically Signed On 10-09-2024 20:15:17 PDT by Jack Houston Please click the below link to view image of tracing.
[2024-10-05 22:29] VITALS: BP 129/60; PULSE 79; RESP 17; TEMP 97.7; O2SAT 95
[2024-10-05 22:39] VITALS: PULSE 79; RESP 18; O2SAT 95
[2024-10-05 22:40] VITALS: BP 120/80; PULSE 78; RESP 17; TEMP 97.7; O2SAT 95
[2024-10-05 23:13] VITALS: PULSE 83
[2024-10-06] VITALS (10 sets, daily range): BP systolic 91–117; BP diastolic 57–71; PULSE 55–91; RESP 17–18; TEMP 97.4–98.2; O2SAT 93–100
[2024-10-06 05:43] LABS: Basophils # (auto) 0 10 ^3/uL (0-0.2); Basophils % (auto) 1.1 % (0.0-2.0); Eosinophils # (auto) 0.2 10 ^3/uL (0-0.8); Eosinophils % (auto) 4.6 % (0.0-7.0); Hematocrit 32.2 % (36.0-46.0); Hemoglobin 10.8 g/dL (12.2-16.2); Lymphocytes # (auto) 0.8 10 ^3/uL (0.4-5.4); Lymphocytes % (auto) 21.6 % (10.0-50.0); Mean Corpuscular Hemoglobin 32.1 pg (28.0-32.0); Mean Corpuscular Hgb Conc. 33.6 g/dL (32.0-36.0); Mean Corpuscular Volume 95.4 fL (80.0-100.0); Monocytes # (auto) 0.4 10 ^3/uL (0-1.3); Monocytes % (auto) 11.6 % (0.0-12.0); Neutrophils # (auto) 2.2 10 ^3/uL (1.6-8.6); Neutrophils % (auto) 61.1 % (37.0-80.0); Nucleated Red Blood Cells % 0.2 %; Platelet Count (auto) 103 10^3/uL (140-450); Red Blood Cells 3.37 10^6/uL (4.0-5.20); Red Cell Distribution Width 15.3 % (11.8-14.3); White Blood Cell 3.6 10^3/uL (4.4-10.8)
[2024-10-06 06:02] LABS: Alanine Aminotransferase 19 U/L (7-40); Anion Gap 7 (5-15); BUN/Creatinine Ratio 24.8 (10.0-20.0); Carbon Dioxide 26 mmol/L (20-31); Chloride 102 mmol/L (98-107); Glucose 92 mg/dL (74-106); Potassium 4.2 mmol/L (3.5-5.1)
[2024-10-06 06:03] LABS: Bilirubin, Total 0.9 mg/dL (0.2-1.0)
[2024-10-06] MEDS: LEVOTHYROXINE SODIUM 88 MCG TAB PO SCH (06:18)
[2024-10-06] MEDS: PANTOPRAZOLE 40 MG TAB PO SCH (06:18)
[2024-10-06 06:25] LABS: Albumin 2.2 g/dL (3.2-4.8); Alkaline Phosphatase 120 U/L (46-116); Aspartate Aminotransferase 44 U/L (13-40); Blood Urea Nitrogen 28 mg/dL (9-23); Calcium 8.3 mg/dL (8.7-10.4); Sodium 135 mmol/L (136-145); Total Protein 5.5 g/dL (5.7-8.2)
[2024-10-06] MEDS: THIAMINE HCL 100 MG TAB PO SCH (09:35)
[2024-10-06] MEDS: METOPROLOL TARTRATE 25 MG TAB PO SCH (09:35)
[2024-10-06] MEDS: MAGNESIUM OXIDE 400 MG TAB PO SCH (09:35)
[2024-10-06] MEDS: CHOLECALCIFEROL (VITD3) 1,000UNIT=25mCg TAB PO SCH (09:35)
[2024-10-06] MEDS: FERROUS SULFATE 325mg EC TAB PO SCH (09:35)
[2024-10-06] MEDS ORDERED: PATIENTS OWN MEDICATION (Ferrous Sulfate (Gnp Iron) 1 TAB) PO SCH (10:00)
[2024-10-06] MEDS ORDERED: PATIENTS OWN MEDICATION (Cholecalciferol (Vitamin D3) 1,000 UNIT) PO SCH (10:00)
[2024-10-06] MEDS ORDERED: PATIENTS OWN MEDICATION (Magnesium Oxide 1 TAB) PO SCH (10:00)
--- NOTE | 2024-10-06 15:26 | DVHINCON2 ---
AIXA GODINEZ [facility] 10/06/24 1526: Date Seen: Oct 06, 2024 Referring Physician MD Cordell Reason for Consultation Congestive heart failure History of Present Illness This is an 84-year-old female patient who presents to the emergency room with chief complaint of generalized weakness and shortness of breath for one day prior to emergency room arrival. Cardiology has been consulted at this time for CHF. Initial twelve lead electrocardiogram reveals atrial fibrillation with right bundle branch block. Initial troponin level of 13ng/L with flat trend thereafter. Significant past medical history includes congestive heart failure, atrial fibrillation (on warfarin therapy), severe tricuspid valve regurgitation, hypertension, pulmonary hypertension, CVA, hypothyroidism, liver cirrhosis, and chronic kidney disease. The patient reports her primary accounts payable associate is . She also reports seeing a specialist at [facility] regarding her tricuspid valve regurgitation. Past Medical History Past medical history reviewed. No other significant than mentioned above. Past Surgical History Right hip replacement Right shoulder repair Hysterectomy Family History: Alcoholism G8 MOTHER Cardiovascular disease G8 MOTHER Cerebrovascular accident (CVA) G8 FATHER Diabetes mellitus G8 MOTHER FH: heart attack G8 BROTHER Hypertension G8 MOTHER G8 FATHER Family History Family history reviewed. Social History Denies the use of tobacco, alcohol or illicit drugs. Allergies: Coded Allergies: Codeine (Verified Allergy, Severe, HALLUCINATION, 03/17/23) Oxycodone (Verified Allergy, Severe, NAUSEA, LIGHT HEADEDNESS, 03/17/23) Sulfamethoxazole (Verified Allergy, Severe, ILLUSION, 03/17/23) Home Meds Active Scripts Pantoprazole Sodium Sesquihydr (Pantoprazole Sodium) 40 Mg Tab, 40 MG PO DAILY@0600, #60 TAB Prov:ANTONY RUSSELL MD 02/03/24 Reported Medications Spironolactone (Spironolactone) 25 Mg Tab, 1 TAB PO EOD for 90 Days, #45 10/06/24 Levothyroxine Sodium (Levothyroxine Sodium) 100 Mcg Tab, 1 TAB PO DAILY for 90 Days, #90 10/06/24 Ferrous Sulfate (Gnp Iron) 325 Mg Tab, 1 TAB PO DAILY for 30 Days, #30 07/14/24 Potassium Chloride (Potassium Chloride ER) 20 Meq Tab, 2 TAB PO BID for 90 Days, #360 1/30/25 Furosemide (Furosemide) 80 Mg Tab, 1 TAB PO BID for 90 Days, #180 07/14/24 Alprazolam (Alprazolam) 0.25 Mg Tab, 1 TAB PO BID PRN for PAIN SCALE 7 THRU 10 for 15 Days, #30 07/14/24 Cholecalciferol (VITAMIN D3) 1,000 Unit Chw, 1000 UNIT PO DAILY, TAB.CHEW 08/21/23 Thiamine Hcl (VITAMIN B-1) 100 Mg Tb, 100 MG PO DAILY, TAB 08/21/23 Magnesium Oxide (MAGNESIUM OXIDE) 400 Mg Tab, 1 TAB PO DAILY, #30 TAB 5 Refills 08/21/23 Albuterol Sulfate (Albuterol Sulfate Hfa) 108 Mcg/Act Aer, 2 PUFF INH QID PRN for SHORTNESS OF BREATH for 25 Days, #8.5 03/17/23 Simvastatin (Simvastatin) 10 Mg Tab, 1 TAB PO DAILY for 71 Days, #71 03/17/23 Metoprolol Tartrate (Metoprolol Tartrate) 25 Mg Tab, 1 TAB PO DAILY for 90 Days, #180 03/17/23 Discontinued Reported Medications Levothyroxine Sodium (Levothyroxine Sodium) 88 Mcg Tab, 1 TAB PO QAM for 90 Days, #90 03/17/23 Home Meds Home medications reviewed. Current Medications Current Medications Medications (Trade) Dose Ordered Sig/Rylee Route PRN Reason Start Time Stop Time Status Last Admin Levothyroxine Sodium (Synthroid Tablet) 88 mcg QAM PO 10/06/24 07:00 10/06/24 06:18 Metoprolol Tartrate (Lopressor Tablet) 25 mg DAILY PO 10/06/24 10:00 10/06/24 09:35 Pantoprazole Sodium (Protonix Tablet) 40 mg DAILY@0600 PO 10/06/24 06:00 10/06/24 06:18 Thiamine HCl 100 mg DAILY PO 10/06/24 10:00 10/06/24 09:35 Patient Own Medication 1,000 unit DAILY PO 10/06/24 10:00 UNV Patient Own Medication 1 tab DAILY PO 10/06/24 10:00 UNV Patient Own Medication 1 tab DAILY PO 10/06/24 10:00 UNV Pravastatin Sodium (Pravachol Tablet) 20 mg HS PO 10/06/24 22:00 Ferrous Sulfate 325 mg DAILY PO 10/06/24 10:00 10/06/24 09:35 Cholecalciferol (Vitamin D3 Tablet) 1,000 unit DAILY PO 10/06/24 10:00 10/06/24 09:35 Magnesium Oxide (Mag-Ox Tablet) 400 mg DAILY PO 10/06/24 10:00 10/06/24 09:35 Review of Systems Constitutional: Generalized weakness Ears, Nose, & Throat: No symptom reported Eyes: No symptom reported Neurological: No symptoms reported Pulmonary/Respiratory: Shortness of breath Cardiovascular: No symptom reported Gastrointestinal: No symptom reported Genitourinary: No symptom reported Musculoskeletal: No symptom reported Skin: No symptom reported Psychiatric: No symptom reported Endocrine: No symptom reported Hematologic/Lymphatic: No symptom reported Vital Signs Vital Signs Date Time Temp Pulse Resp B/P (MAP) Pulse Ox O2 Delivery O2 Flow Rate FiO2 10/06/24 13:00 97.4 69 17 111/58 (75) 95 97.4 10/06/24 08:25 Room Air* 0 21 Physical Exam General Appearance: Cooperative. Well-developed. Well-nourished. No acute distress. Pulmonary/Respiratory: Clear, bilateral breaths sounds. Cardiovascular/Chest: Irregular rate and rhythm. Peripheral Pulses: 2+ Radial (R). 2+ Radial (L). 1+ Pedal (R). 1+ Pedal (L) Abdominal Exam: Normal bowel sounds. Ankle Exam: 4+ pitting edema Lower extremities: 4+ pitting edema Neuro/Mental Status: A/OX4, coherent. Thoughts/Psych: Normal thought pattern. Appropriate mood and affect. Good judgment and insight. Appearance: No acute distress. Skin Exam: Normal inspection. Normal color. Warm and dry. Labs/Diagnostic Data Labs Test 10/06/24 04:38 10/05/24 15:40 10/05/24 12:46 Range/Units White Blood Count 3.6 L 4.4-10.8 10^3/uL Red Blood Count 3.37 L 4.0-5.20 10^6/uL Hemoglobin 10.8 L 12.2-16.2 g/dL Hematocrit 32.2 L 36.0-46.0 % Mean Corpuscular Volume 95.4 80.0-100.0 fL Mean Corpuscular Hemoglobin 32.1 H 28.0-32.0 pg Mean Corpuscular Hemoglobin Concent 33.6 32.0-36.0 g/dL Red Cell Distribution Width 15.3 H 11.8-14.3 % Platelet Count 103 L 140-450 10^3/uL Mean Platelet Volume 7.0 6.9-10.8 fL Neutrophils (%) (Auto) 61.1 37.0-80.0 % Lymphocytes (%) (Auto) 21.6 10.0-50.0 % Monocytes (%) (Auto) 11.6 0.0-12.0 % Eosinophils (%) (Auto) 4.6 0.0-7.0 % Basophils (%) (Auto) 1.1 0.0-2.0 % Neutrophils # (Auto) 2.2 1.6-8.6 10 ^3/uL Lymphocytes # (Auto) 0.8 0.4-5.4 10 ^3/uL Monocytes # (Auto) 0.4 0-1.3 10 ^3/uL Eosinophils # (Auto) 0.2 0-0.8 10 ^3/uL Basophils # (Auto) 0 0-0.2 10 ^3/uL Nucleated Red Blood Cells 0.2 % Sodium Level 135 L 136-145 mmol/L Potassium Level 4.2 3.5-5.1 mmol/L Chloride Level 102 98-107 mmol/L Carbon Dioxide Level 26 20-31 mmol/L Anion Gap 7 5-15 Blood Urea Nitrogen 28 H 9-23 mg/dL Creatinine 1.13 H 0.550-1.02 mg/dL Glomerular Filtration Rate Calc 47 >90 mL/min BUN/Creatinine Ratio 24.8 H 10.0-20.0 Serum Glucose 92 74-106 mg/dL Calcium Level 8.3 L 8.7-10.4 mg/dL Total Bilirubin 0.9 0.2-1.0 mg/dL Aspartate Amino Transferase (AST) 44 H 13-40 U/L Alanine Aminotransferase (ALT) 19 7-40 U/L Alkaline Phosphatase 120 H 46-116 U/L Total Protein 5.5 L 5.7-8.2 g/dL Albumin 2.2 L 3.2-4.8 g/dL Troponin I High Sensitivity 14 </=34 ng/L Prothrombin Time 17.7 H 9.3-11.8 sec Prothrombin Time INR 1.77 H 0.9-1.15 Assessment Acute on chronic HFpEF, NYHA class III Severe tricuspid valve regurgitation Atrial fibrillation, likely persistent (on warfarin therapy) Hypertension History of pulmonary hypertension CVA Thyroid disease Chronic kidney disease Liver cirrhosis Plan/Recommendation We will continue with the following plan/recommendations (Dr. Mae): Patient seen and examined at bedside with . Previous transthoracic echocardiogram from 07/14/2024 reveals an EF of 60%, RVSP 21 mmHg. The patient reports that her primary accounts payable associate has referred her to [facility] regarding her severe tricuspid regurgitation. The patient reports that she is following up with a accounts payable associate at [facility] regarding possible tricuspid valve replacement versus [employer]. At this time, we will recommend to continue with aggressive diuresis as tolerated. The patient will need to follow up [facility] regarding tricuspid valve issues. [id number] VASc score: 5 points. Continue with warfarin therapy for AFib. Continue with close cardiac surveillance. Thank you for allowing us to care for this patient. Please call with any questions or concerns. Critical care time spent: 44 minutes This medical document was created using an electronic medical record system with voice recognition software and computerized dictation system. Although this document has been carefully reviewed, there might still be some phonetic and typographical errors. Occasional wrong-word or ``sound-alike substitutions may have occurred due to the inherent limitations of voice recognition software. These areas are purely typographical due to imperfections of the software programs and do not reflect any compromise in the patient's medical care. Please read the chart carefully and recognize, using context, where these substitutions have occurred. Plan discussed with: Patient NYHA Physical activity limitations: Class3(Marked) ordinary (activity causes symtoms) Date of Service: Oct 06, 2024 Billing Provider: AIXA GODINEZ DYE WEIGHER Cardiology Common Codes: 00590-[id number] INP/OBS CARE (High) Cardiology Consultation Codes: [id number] CONSULT <45MIN AIDEE MAE DO 10/06/24 2323: Date Seen: Oct 06, 2024 Family History: Alcoholism G8 MOTHER Cardiovascular disease G8 MOTHER Cerebrovascular accident (CVA) G8 FATHER Diabetes mellitus G8 MOTHER FH: heart attack G8 BROTHER Hypertension G8 MOTHER G8 FATHER Allergies: Coded Allergies: Codeine (Verified Allergy, Severe, HALLUCINATION, 03/17/23) Oxycodone (Verified Allergy, Severe, NAUSEA, LIGHT HEADEDNESS, 03/17/23) Sulfamethoxazole (Verified Allergy, Severe, ILLUSION, 03/17/23) Home Meds Active Scripts Pantoprazole Sodium Sesquihydr (Pantoprazole Sodium) 40 Mg Tab, 40 MG PO DAILY@0600, #60 TAB Prov:ANTONY RUSSELL MD 02/03/24 Reported Medications Spironolactone (Spironolactone) 25 Mg Tab, 1 TAB PO EOD for 90 Days, #45 10/06/24 Levothyroxine Sodium (Levothyroxine Sodium) 100 Mcg Tab, 1 TAB PO DAILY for 90 Days, #90 10/06/24 Ferrous Sulfate (Gnp Iron) 325 Mg Tab, 1 TAB PO DAILY for 30 Days, #30 07/14/24 Potassium Chloride (Potassium Chloride ER) 20 Meq Tab, 2 TAB PO BID for 90 Days, #360 07/14/24 Furosemide (Furosemide) 80 Mg Tab, 1 TAB PO BID for 90 Days, #180 07/14/24 Alprazolam (Alprazolam) 0.25 Mg Tab, 1 TAB PO BID PRN for PAIN SCALE 7 THRU 10 for 15 Days, #30 07/14/24 Cholecalciferol (VITAMIN D3) 1,000 Unit Chw, 1000 UNIT PO DAILY, TAB.CHEW 08/21/23 Thiamine Hcl (VITAMIN B-1) 100 Mg Tb, 100 MG PO DAILY, TAB 08/21/23 Magnesium Oxide (MAGNESIUM OXIDE) 400 Mg Tab, 1 TAB PO DAILY, #30 TAB 5 Refills 08/21/23 Albuterol Sulfate (Albuterol Sulfate Hfa) 108 Mcg/Act Aer, 2 PUFF INH QID PRN for SHORTNESS OF BREATH for 25 Days, #8.5 03/17/23 Simvastatin (Simvastatin) 10 Mg Tab, 1 TAB PO DAILY for 71 Days, #71 03/17/23 Metoprolol Tartrate (Metoprolol Tartrate) 25 Mg Tab, 1 TAB PO DAILY for 90 Days, #180 03/17/23 Discontinued Reported Medications Levothyroxine Sodium (Levothyroxine Sodium) 88 Mcg Tab, 1 TAB PO QAM for 90 Days, #90 03/17/23 Plan/Recommendation The patient was discussed, seen, and examined with Aixa Godinez, DRAW MACHINE OPERATOR. I agree with her Assessment and Plan, which was formulated with me. Plan discussed with: Patient Date of Service: Oct 06, 2024 Billing Provider: AIDEE MAE DO Cardiology Common Codes: [id number] INP/OBS CARE (High) AIXA GODINEZ DYE WEIGHER Oct 06, 2024 15:26 AIDEE MAE DO Oct 06, 2024 23:23
--- NOTE | 2024-10-06 15:43 | DVHPN2 ---
Subjective Patient was still complaining of shortness breath and bilateral leg swelling with the hospital was updated at bedside. Choice lining caser Isabela has been called who will arrange outpatient follow up at [facility] for tricuspid valve repair. 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 Medications Current Medications Medications Dose Ordered Sig/Rylee Route Start Time Stop Time Status Last Admin Dose Admin Acetaminophen/ Hydrocodone Bitart 1 tab Q4HP PRN PO 10/05/24 15:15 Hold Ondansetron HCl 4 mg Q4HP PRN IV 10/05/24 15:15 Acetaminophen 650 mg Q6HP PRN PO 10/05/24 15:15 Morphine Sulfate 2 mg Q4HPRN PRN IV 10/05/24 15:15 Cancel Nitroglycerin 0.4 mg Q5MINP PRN SL 10/05/24 15:15 Morphine Sulfate 2 mg Q30M PRN IV 10/05/24 15:15 Cancel Furosemide 40 mg BIDD IV 10/05/24 15:15 10/06/24 06:26 40 MG Alprazolam 0.25 mg BID PRN PO 10/05/24 15:15 Levothyroxine Sodium 88 mcg QAM PO 10/06/24 07:00 10/06/24 06:18 88 MCG Metoprolol Tartrate 25 mg DAILY PO 10/06/24 10:00 10/06/24 09:35 25 MG Pantoprazole Sodium 40 mg DAILY@0600 PO 10/06/24 06:00 10/06/24 06:18 40 MG Thiamine HCl 100 mg DAILY PO 10/06/24 10:00 10/06/24 09:35 100 MG Patient Own Medication 1,000 unit DAILY PO 10/06/24 10:00 UNV Patient Own Medication 1 tab DAILY PO 10/06/24 10:00 UNV Patient Own Medication 1 tab DAILY PO 10/06/24 10:00 UNV Pravastatin Sodium 20 mg HS PO 10/06/24 22:00 Ferrous Sulfate 325 mg DAILY PO 10/06/24 10:00 10/06/24 09:35 325 MG Cholecalciferol 1,000 unit DAILY PO 10/06/24 10:00 10/06/24 09:35 1,000 UNIT Magnesium Oxide 400 mg DAILY PO 10/06/24 10:00 10/06/24 09:35 400 MG Laboratory Results Laboratory Tests 10/06/24 04:38 Chemistry Test 10/06/24 04:38 Albumin 2.2 g/dL (3.2-4.8) L Calcium Level 8.3 mg/dL (8.7-10.4) L Total Protein 5.5 g/dL (5.7-8.2) L LFT Test 10/06/24 04:38 Alanine Aminotransferase (ALT) 19 U/L (7-40) Alkaline Phosphatase 120 U/L (46-116) H Aspartate Amino Transferase (AST) 44 U/L (13-40) H Total Bilirubin 0.9 mg/dL (0.2-1.0) Assessment/Plan Assessment/Plan 84-year-old female with a known history of end-stage liver disease, recurrent ascites status post paracentesis, severe tricuspid regurgitation, hypertension, hypothyroidism, previous history of GI bleed with a esophageal varices presented to the hospital with the increasing shortness a breath found to have 1. Dyspnea on exertion 2.Acute on chronic congestive heart failure exacerbation with systolic dysfunction 3. Severe tricuspid regurgitation 4. Bilateral lower extremity swelling 5. Recurrent ascites 6. End-stage liver disease 7. Hypothyroidism 8. Hypoalbuminemia -continue IV diuretics, outpatient follow up at at [facility]-for tricuspid valve repair -chest lining caser has been notified for the same Plan discussed with: Patient My Orders Orders - ANTONY RUSSELL MD Procedure Category Date Status Time Ferrous Sulfate Tablet PHA 10/06/24 In Process 10:00 Cholecalciferol PHA 10/06/24 In Process Tablet (Vitamin D3 10:00 Magnesium Oxide PHA 10/06/24 In Process Tablet (Mag-Ox Tablet) 10:00 * Cardiology Consult CONS 10/06/24 Transmitted 13:06 Date of Service: Oct 06, 2024 Billing Provider: ANTONY RUSSELL MD Common Visit Codes: NOT BILLABLE ANTONY RUSSELL MD Oct 06, 2024 15:43
[2024-10-06] MEDS: PRAVASTATIN SODIUM 20 MG TAB PO SCH (21:06)
[2024-10-06] MEDS: ALPRAZolam 0.25 MG TAB PO PRN (21:06)
[2024-10-06] MEDS: WARFARIN SODIUM 1 MG TAB PO ONE (22:22)
[2024-10-07] VITALS (8 sets, daily range): BP systolic 107–119; BP diastolic 57–74; PULSE 62–92; RESP 15–18; TEMP 97.4–98.1; O2SAT 93–100
[2024-10-07 00:58] LABS: INR 2.01 (0.9-1.15); Partial Thromboplastin Time 39.5 SEC (24.5-34.5); Prothrombin Time 19.9 sec (9.3-11.8)
--- NOTE | 2024-10-07 11:35 | DVHPN2 ---
Consult Progress Note Subjective Other Systems: Patient in atrial fibrillation at time of assessment. Patient walking with physical therapy at time of assessment, no complaints. Objective vital signs Vital Sign Date Time Temp Pulse Resp B/P (MAP) Pulse Ox O2 Delivery O2 Flow Rate FiO2 10/07/24 10:27 92 117/64 10/07/24 09:00 97.6 16 100 97.6 10/07/24 08:30 Room Air* 0 21 Total Intake and Output 10/06/24 10/06/24 10/07/24 15:00 23:00 07:00 Intake Total 200 ml 600 ml Balance 200 ml 600 ml medications Current Medications Medications Dose Ordered Sig/Rylee Route Start Time Stop Time Status Last Admin Dose Admin Acetaminophen/ Hydrocodone Bitart 1 tab Q4HP PRN PO 10/05/24 15:15 Hold Ondansetron HCl 4 mg Q4HP PRN IV 10/05/24 15:15 Acetaminophen 650 mg Q6HP PRN PO 10/05/24 15:15 Morphine Sulfate 2 mg Q4HPRN PRN IV 10/05/24 15:15 Cancel Nitroglycerin 0.4 mg Q5MINP PRN SL 10/05/24 15:15 Morphine Sulfate 2 mg Q30M PRN IV 10/05/24 15:15 Cancel Furosemide 40 mg BIDD IV 10/05/24 15:15 10/07/24 06:02 40 MG Alprazolam 0.25 mg BID PRN PO 10/05/24 15:15 10/06/24 21:06 0.25 MG Levothyroxine Sodium 88 mcg QAM PO 10/06/24 07:00 10/07/24 06:02 88 MCG Metoprolol Tartrate 25 mg DAILY PO 10/06/24 10:00 10/07/24 10:27 25 MG Pantoprazole Sodium 40 mg DAILY@0600 PO 10/06/24 06:00 10/07/24 06:02 40 MG Thiamine HCl 100 mg DAILY PO 10/06/24 10:00 10/07/24 10:27 100 MG Patient Own Medication 1,000 unit DAILY PO 10/06/24 10:00 UNV Patient Own Medication 1 tab DAILY PO 10/06/24 10:00 UNV Patient Own Medication 1 tab DAILY PO 10/06/24 10:00 UNV Pravastatin Sodium 20 mg HS PO 10/06/24 22:00 10/06/24 21:06 20 MG Ferrous Sulfate 325 mg DAILY PO 10/06/24 10:00 10/07/24 10:27 325 MG Cholecalciferol 1,000 unit DAILY PO 10/06/24 10:00 10/07/24 10:27 1,000 UNIT Magnesium Oxide 400 mg DAILY PO 10/06/24 10:00 10/07/24 10:26 400 MG Warfarin Sodium RX PROTOCOL PER PHARMACY PO 10/06/24 20:30 Examination: GENERAL:Abnormal (Generalized weakness), LUNGS:Normal, CVS:Normal, NEURO:Normal laboratory and microbiology Laboratory Tests 10/06/24 04:38 Test 10/06/24 04:38 Range/Units Serum Glucose 92 74-106 mg/dL Problem List/Assessment/Plan Problem List/Assessment/Plan Acute on chronic HFpEF, NYHA class III Severe tricuspid valve regurgitation Atrial fibrillation, likely persistent (on warfarin therapy) Hypertension History of pulmonary hypertension CVA Thyroid disease Chronic kidney disease Liver cirrhosis Plan/Recommendation (Dr. Pham): Case discussed with . Previous transthoracic echocardiogram from 07/14/2024 reveals an EF of 60%, RVSP 21 mmHg. The patient reports that her primary structural technician has referred her to [facility] regarding her severe tricuspid regurgitation. The patient reports that she is following up with a structural technician at [facility] regarding possible tricuspid valve replacement versus TriClip. At this time, we will recommend to continue with aggressive diuresis as tolerated. The patient will need to follow up [facility] regarding tricuspid valve issues. [id number] VASc score: 5 points. Continue with warfarin therapy for AFib. Continue with close cardiac surveillance. Thank you for allowing us to care for this patient. Please call with any questions or concerns. This medical document was created using an electronic medical record system with voice recognition software and computerized dictation system. Although this document has been carefully reviewed, there might still be some phonetic and typographical errors. Occasional wrong-word or ``sound-alike substitutions may have occurred due to the inherent limitations of voice recognition software. These areas are purely typographical due to imperfections of the software programs and do not reflect any compromise in the patient's medical care. Please read the chart carefully and recognize, using context, where these substitutions have occurred. Plan discussed with: Patient, Spouse Date of Service: Oct 07, 2024 Billing Provider: AIXA RUIZ Common Visit Codes: [id number] INP/OBS CARE(HIGH) AIXA RUIZ Oct 07, 2024 11:35
--- NOTE | 2024-10-07 15:01 | DVHDS2 ---
Discharge Summary Date of Admission Oct 05, 2024 at 15:13 Date of Discharge: Oct 07, 2024 Labs/Diagnostic Data: Laboratory Results Test 10/07/24 00:17 10/06/24 04:38 10/05/24 15:40 Prothrombin Time 19.9 sec (9.3-11.8) Prothrombin Time INR 2.01 (0.9-1.15) Activated Partial Thromboplast Time 39.5 SEC (24.5-34.5) White Blood Count 3.6 10^3/uL (4.4-10.8) Red Blood Count 3.37 10^6/uL (4.0-5.20) Hemoglobin 10.8 g/dL (12.2-16.2) Hematocrit 32.2 % (36.0-46.0) Mean Corpuscular Volume 95.4 fL (80.0-100.0) Mean Corpuscular Hemoglobin 32.1 pg (28.0-32.0) Mean Corpuscular Hemoglobin Concent 33.6 g/dL (32.0-36.0) Red Cell Distribution Width 15.3 % (11.8-14.3) Platelet Count 103 10^3/uL (140-450) Mean Platelet Volume 7.0 fL (6.9-10.8) Neutrophils (%) (Auto) 61.1 % (37.0-80.0) Lymphocytes (%) (Auto) 21.6 % (10.0-50.0) Monocytes (%) (Auto) 11.6 % (0.0-12.0) Eosinophils (%) (Auto) 4.6 % (0.0-7.0) Basophils (%) (Auto) 1.1 % (0.0-2.0) Neutrophils # (Auto) 2.2 10 ^3/uL (1.6-8.6) Lymphocytes # (Auto) 0.8 10 ^3/uL (0.4-5.4) Monocytes # (Auto) 0.4 10 ^3/uL (0-1.3) Eosinophils # (Auto) 0.2 10 ^3/uL (0-0.8) Basophils # (Auto) 0 10 ^3/uL (0-0.2) Nucleated Red Blood Cells 0.2 % Sodium Level 135 mmol/L (136-145) Potassium Level 4.2 mmol/L (3.5-5.1) Chloride Level 102 mmol/L (98-107) Carbon Dioxide Level 26 mmol/L (20-31) Anion Gap 7 (5-15) Blood Urea Nitrogen 28 mg/dL (9-23) Creatinine 1.13 mg/dL (0.550-1.02) Glomerular Filtration Rate Calc 47 mL/min (>90) BUN/Creatinine Ratio 24.8 (10.0-20.0) Serum Glucose 92 mg/dL (74-106) Calcium Level 8.3 mg/dL (8.7-10.4) Total Bilirubin 0.9 mg/dL (0.2-1.0) Aspartate Amino Transferase (AST) 44 U/L (13-40) Alanine Aminotransferase (ALT) 19 U/L (7-40) Alkaline Phosphatase 120 U/L (46-116) Total Protein 5.5 g/dL (5.7-8.2) Albumin 2.2 g/dL (3.2-4.8) Troponin I High Sensitivity 14 ng/L (</=34) Other Laboratory Tests 10/06/24 04:38 Brief Hx & Hospital Course: 84-year-old female with a known history of end-stage liver disease, recurrent ascites status post paracentesis, severe tricuspid regurgitation, hypertension, hypothyroidism, previous history of GI bleed with a esophageal varices presented to the hospital with the increasing shortness a breath found to have acute on chronic congestive heart failure exacerbation with systolic dysfunction. Also patient had severe tricuspid regurgitation. Patient's has a bilateral lower extremity swelling which improved after IV Lasix patient has a recurrent ascites but currently not enough fluid to be drained. Patient's recurrent ascites might be secondary to end-stage liver disease/versus cardiac ascites. Patient does take Coumadin at home for paroxysmal AFib currently stable to be discharged. Isai manager rn case has been notified regarding authorization for [facility] for tricuspid valve repair. Also I talked to patient patient's at bedside as well patient's daughter Khadijah on the phone they agreed to the current plan of care. Currently choice manager rn case has been working on arranging [facility] arrangement at [facility] with a valvular surgeon. Condition at Discharge: Stable Final Diagnosis/Problems List 84-year-old female with a known history of end-stage liver disease, recurrent ascites status post paracentesis, severe tricuspid regurgitation, hypertension, hypothyroidism, previous history of GI bleed with a esophageal varices presented to the hospital with the increasing shortness a breath found to have 1. Dyspnea on exertion 2.Acute on chronic congestive heart failure exacerbation with systolic dysfunction 3. Severe tricuspid regurgitation 4. Bilateral lower extremity swelling, improved 5. Recurrent ascites, currently stable not enough fluid for paracentesis 6. End-stage liver disease 7. Hypothyroidism 8. Hypoalbuminemia Discharge Disposition: Home with [facility] Services [facility] Discharge Will this Physician continue t: No Discharge Instruct/Medications Diet: Cardiac 2g Na,low cholest Activity: No Restrictions, As Tolerated Follow Up/Referral: Follow up with Dr. Houston/[facility] for tricuspid valve repair Medications: Resume home medications Discharge Statement: "Patient was advised to return to the ER or call 911 if any headaches, dizziness, shortness of breath, chest pain, abdominal pain, bleeding, fevers, or worsening of medical condition. Patient was counseled about treatment plan, medications, possible side effects, patientverbalized understanding. All questions were answered to the best of my ability. This discharge took greater then 30 minutes in planning, reviewing documentation, counseling the patient, and discussing with other team members." ASSESSMENT ASSESSMENT Assessment 84-year-old female with a known history of end-stage liver disease, recurrent ascites status post paracentesis, severe tricuspid regurgitation, hypertension, hypothyroidism, previous history of GI bleed with a esophageal varices presented to the hospital with the increasing shortness a breath found to have 1. Dyspnea on exertion 2.Acute on chronic congestive heart failure exacerbation with systolic dysfunction 3. Severe tricuspid regurgitation 4. Bilateral lower extremity swelling, improved 5. Recurrent ascites, currently stable not enough fluid for paracentesis 6. End-stage liver disease 7. Hypothyroidism 8. Hypoalbuminemia Date of Service: Oct 07, 2024 Billing Provider: ANTONY RUSSELL MD Common Visit Codes: NOT BILLABLE ANTONY RUSSELL MD Oct 07, 2024 15:01
[2024-10-07] MEDS ORDERED: WARFARIN SODIUM 1 MG TAB PO ONE (17:00)
--- NOTE | 2024-10-07 22:11 | DVHPN2 ---
Consult Progress Note Subjective Other Systems: Patient was seen and evaluated in follow up. Patient in atrial fibrillation at time of assessment. Patient walking with physical therapy at time of assessment, no complaints. BUN 28, AUTOMATIC CHIEF 1.13. Telemetry reviewed. Objective vital signs Vital Sign Date Time Temp Pulse Resp B/P (MAP) Pulse Ox O2 Delivery O2 Flow Rate FiO2 10/07/24 17:00 98.0 80 15 110/74 (86) 96 98.0 10/07/24 08:30 Room Air* 0 21 Total Intake and Output 10/06/24 10/06/24 10/07/24 15:00 23:00 07:00 Intake Total 200 ml 600 ml Balance 200 ml 600 ml medications Current Medications Medications Dose Ordered Sig/Rylee Route Start Time Stop Time Status Last Admin Dose Admin Morphine Sulfate 2 mg Q4HPRN PRN IV 10/05/24 15:15 Cancel Morphine Sulfate 2 mg Q30M PRN IV 10/05/24 15:15 Cancel Patient Own Medication 1,000 unit DAILY PO 10/06/24 10:00 UNV Patient Own Medication 1 tab DAILY PO 10/06/24 10:00 UNV Patient Own Medication 1 tab DAILY PO 10/06/24 10:00 UNV Examination: GENERAL:Normal, HEENT:Normal, NECK:Normal, LUNGS:Normal, CVS:Normal, NEURO:Normal laboratory and microbiology Laboratory Tests 10/06/24 04:38 Test 10/06/24 04:38 Range/Units Serum Glucose 92 74-106 mg/dL Problem List/Assessment/Plan Problem List/Assessment/Plan Problem List/Assessment/Plan Acute on chronic HFpEF, NYHA class III. Severe tricuspid valve regurgitation. Atrial fibrillation, likely persistent (on warfarin therapy). Hypertension. History of pulmonary hypertension. CVA. Thyroid disease. Chronic kidney disease. Liver cirrhosis. Plan/Recommendation Continued all current supportive medical care. Patient has been seen by Mackenzie Godinez NP on my behalf, her and I discussed the plan with the patient. Previous transthoracic echocardiogram from 07/14/2024 reveals an EF of 60%, RVSP 21 mmHg. The patient reports that her primary rand cementer has referred her to [facility] regarding her severe tricuspid regurgitation. The patient reports that she is following up with a rand cementer at [facility] regarding possible tricuspid valve replacement versus TriClip. At this time, we will recommend to continue with aggressive diuresis as tolerated. The patient will need to follow up [facility] regarding tricuspid valve issues. [id number] VASc score: 5 points. Continue with warfarin therapy for AFib. Continue with close cardiac surveillance. Additional plan as per the hospital course. Plan discussed with: Patient Date of Service: Oct 07, 2024 Billing Provider: KEN BAEZ MD Cardiology Common Codes: [id number] INP/OBS CARE (High) KEN BAEZ MD Oct 07, 2024 22:08
== END 2024-10-07 17:13 | disposition home or self-care (01) | DRG 291 ==
LOC: EDBD 10:40 → ER 10:40 → OVERFLOW 15:13 → TELE-WESTW 22:18
PROVIDERS: ADMIT Internal Medicine; ATTEND Internal Medicine
DX: I13.0 Hypertensive heart and chronic kidney disease with heart failure and stage 1 through stage 4 chronic kidney disease, or unspecified chronic kidney disease (principal); I50.23 Acute on chronic systolic (congestive) heart failure; R18.8 Other ascites; E03.9 Hypothyroidism, unspecified; E88.09 Other disorders of plasma-protein metabolism, not elsewhere classified; I07.1 Rheumatic tricuspid insufficiency; K72.10 Chronic hepatic failure without coma; I48.0 Paroxysmal atrial fibrillation; K74.60 Unspecified cirrhosis of liver; K21.9 Gastro-esophageal reflux disease without esophagitis; N18.9 Chronic kidney disease, unspecified; Z96.641 Presence of right artificial hip joint; Z88.2 Allergy status to sulfonamides; Z88.5 Allergy status to narcotic agent; Z90.710 Acquired absence of both cervix and uterus; Z86.73 Personal history of transient ischemic attack (TIA), and cerebral infarction without residual deficits; Z83.3 Family history of diabetes mellitus; Z82.49 Family history of ischemic heart disease and other diseases of the circulatory system; Z82.3 Family history of stroke; Z79.01 Long term (current) use of anticoagulants; Z79.899 Other long term (current) drug therapy
CPT/HCPCS: 36415; 71045; 80053; 84484; 85025; 85610; 85730; 93005; 97110; 97116; 97163; 99291; G0378